=== PATIENT | male | born 1970 | race Caucasian/White ===

== ENCOUNTER 2016-05-02 23:01 | Emergency (ER) | payer OTHER ==
[2016-05-02] MEDS ORDERED: DIPH,PERTUS(ACELL)TETVAC-LF 0.5 ML VIAL IM ONE (23:07)
[2016-05-02 23:09] LABS: Glucose,Whole Blood 83 mg/dL (75-99)
[2016-05-02 23:12] VITALS: TEMP 97.8
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
[2016-05-02 23:18] LABS: Basophils # (A) 0.1 k/uL (0-0.2); Basophils % (A) 1 %; CH 30.2; CHCM 33.6; Eosinophils # (A) 0.1 k/uL (0-0.7); Eosinophils % (A) 1 %; HDW 2.57; HGB 13.4 gm/dL (13.0-17.5); Luc # (Auto) 0.12; Luc % (Auto) 2; Lymphocytes # (A) 2.3 k/uL (1.0-4.8); Lymphocytes % (A) 30 %; MCV 90.5 fL (80.0-100.0); Mean Platelet Volume 7.1; Monocytes # (A) 0.4 k/uL (0-1.0); Monocytes % (A) 6 %; Neutrophils # (A) 4.6 k/uL (1.3-7.7); Neutrophils % (A) 61 %; RBC 4.64 m/uL (4.30-5.90); RDW 13.9 % (11.5-15.5); WBC 7.6 k/uL (3.8-10.6); WBC (Perox) 7.44
[2016-05-02 23:29] LABS: ALT 34 U/L (21-72); AST 34 U/L (17-59); Alkaline Phosphatase 62 U/L (38-126); Amylase <30 U/L (30-110); Anion Gap 13 mmol/L; Blood Urea Nitrogen 8 mg/dL (9-20); Calcium 8.8 mg/dL (8.4-10.2); Carbon Dioxide 22 mmol/L (22-30); Chloride 107 mmol/L (98-107); Glucose 80 mg/dL (74-99); Non-African American GFR(MDRD) >60 (>60 ml/min/1.73 sqM); Potassium 4.3 mmol/L (3.5-5.1); Sodium 142 mmol/L (137-145); Total Bilirubin 0.4 mg/dL (0.2-1.3); Total Protein 6.8 g/dL (6.3-8.2)
[2016-05-02 23:31] LABS: Alcohol 215 mg/dL
[2016-05-02 23:37] LABS: Creatine Kinase 283 U/L (55-170)
[2016-05-02 23:49] LABS: INR 1.1 (<1.1); Partial Thromboplastin Time 23.1 sec (22.0-30.0)
[2016-05-02 23:50] LABS: Troponin I <0.012 ng/mL (0.000-0.034)
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
[2016-05-03] MEDS ORDERED: HYDROmorphone 1 MG/ML 1 ML SYRINGE IVP STA (00:41)
[2016-05-03] MEDS ORDERED: MIDAZOLAM (PF) 1 MG/ML 5 ML VIAL IV STA (00:41)
[2016-05-03 00:59] VITALS: RESP 14
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
[2016-05-03 02:03] VITALS: BP 120/80; PULSE 70
--- NOTE | 2016-05-03 03:31 | XR ---
EXAMINATION TYPE: XR shoulder limited RT DATE OF EXAM: 05/03/2016 1:02 AM CLINICAL HISTORY: Post reduction right shoulder TECHNIQUE: Three views of the right shoulder are obtained. COMPARISON: 05/02/2016 FINDINGS: There is interval reduction of anterior dislocation of right shoulder joint. Mild degenerative change s are suggested in the right glenohumeral and the right acromioclavicular joint. Surrounding soft tis gavin swelling is suggested. Visualized right lung and right ribs appear grossly unremarkable. No defin ite acute fracture is noted in the right shoulder. IMPRESSION: 1. Interval reduction of anterior dislocation of right shoulder joint. 2. No definite acute fracture is noted. A clinical correlation and follow-up is recommended.
== END 2016-05-03 02:02 | disposition home or self-care (01) ==
LOC: EC 23:01
DX: S43.084A Other dislocation of right shoulder joint, initial encounter (principal); S00.81XA Abrasion of other part of head, initial encounter; F10.129 Alcohol abuse with intoxication, unspecified; V29.9XXA Motorcycle rider (driver) (passenger) injured in unspecified traffic accident, initial encounter; Z23 Encounter for immunization; F95.2 Tourette's disorder; F20.9 Schizophrenia, unspecified; F41.9 Anxiety disorder, unspecified; F17.200 Nicotine dependence, unspecified, uncomplicated; Z79.899 Other long term (current) drug therapy
CPT/HCPCS: 36415; 93005; 86900; 86901; 80053; 82150; 82550; 82553; 83690; 84484; 85025; 85610; 85730; 86850; 80320; 71010; 72170; 73020 ×2; 72125; 70486; 70450; 90715; 99285; 23650; 99152; 96374; J2250; J1170; 90471

== ENCOUNTER 2017-03-16 14:57 | Emergency (ER) | payer OTHER ==
[2017-03-16 15:13] VITALS: BP 124/75; PULSE 114; RESP 18; TEMP 99.1
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
== END 2017-03-16 16:01 | disposition home or self-care (01) ==
LOC: EC 14:57
DX: S01.01XA Laceration without foreign body of scalp, initial encounter (principal); F17.200 Nicotine dependence, unspecified, uncomplicated; Z79.899 Other long term (current) drug therapy; W20.8XXA Other cause of strike by thrown, projected or falling object, initial encounter; Y93.89 Activity, other specified; Y92.009 Unspecified place in unspecified non-institutional (private) residence as the place of occurrence of the external cause
CPT/HCPCS: 12001; 99282

== ENCOUNTER 2018-09-29 06:39 | Emergency (ER) | payer OTHER ==
[2018-09-29 06:55] VITALS: BP 134/88; PULSE 95; RESP 20; TEMP 97.8
[2018-09-29] MEDS ORDERED: ACET/COD 300 MG/30 MG STARTER PACK 6 TAB BTL PO STA (07:19)
--- NOTE | 2018-09-29 07:19 | ED ---
Upper Extremity HPI - General Chief Complaint: Extremity Injury, Upper Stated Complaint: shoulder pain Time Seen by Provider: 09/29/18 07:03 Source: patient, RN notes reviewed Mode of arrival: ambulatory Limitations: no limitations - History of Present Illness Initial Comments: 48-year-old male presents emergency Department chief complaint of right shoulder pain. Patient states that he has had prior dislocation. Patient states it feels dislocated. Patient states that he woke up with this. Patient denies any trauma. Denies any paresthesias. Patient states that his happened 2 prior times. Patient offers no other complaints. - Related Data Home Medications Medication Instructions Recorded Confirmed Primidone [Mysoline] 50 mg PO BID 03/07/15 09/18/15 HYDROcodone/APAP 7.5-325MG [[place] 1 tab PO TID PRN 08/06/15 09/18/15 7.5-325] Previous Rx's Medication Instructions Recorded ALPRAZolam [Xanax] 2 mg PO TID PRN #10 tab 08/09/15 Nicotine 21Mg/24Hr Patch [Habitrol] 1 patch TRANSDERM DAILY #30 patch 08/09/15 Sertraline [Zoloft] 200 mg PO DAILY #60 tab 08/09/15 buPROPion XL [Wellbutrin XL] 150 mg PO DAILY #30 tab.er.24h 08/09/15 hydrOXYzine PAMOATE [Vistaril] 50 mg PO Q6HR PRN #120 cap 08/09/15 QUEtiapine FUMARATE [SEROquel] 300 mg PO HS #30 tab 08/19/15 Cyclobenzaprine [Flexeril] 10 mg PO TID #14 tab 05/03/16 Ibuprofen [Motrin] 800 mg PO Q6HR PRN #20 tab 05/03/16 Allergies Allergy/AdvReac Type Severity Reaction Status Date / Time No Known Allergies Allergy Verified 03/16/17 15:13 Review of Systems ROS Statement: Those systems with pertinent positive or pertinent negative responses have been documented in the HPI. ROS Other: All systems not noted in ROS Statement are negative. Past Medical History Past Medical History: GERD/Reflux Additional Past Medical History / Comment(s): back pain, tourettes History of Any Multi-Drug Resistant Organisms: None Reported Past Surgical History: No Surgical Hx Reported Additional Past Surgical History / Comment(s): right meniscus, right eye. Past Anesthesia/Blood Transfusion Reactions: No Reported Reaction Past Psychological History: Anxiety, Schizophrenia Smoking Status: Current every day smoker Past Alcohol Use History: None Reported Past Drug Use History: None Reported General Exam Limitations: no limitations General appearance: alert, in no apparent distress Head exam: Present: atraumatic, normocephalic, normal inspection Neck exam: Present: normal inspection. Absent: tenderness, meningismus, lymphadenopathy Respiratory exam: Present: normal lung sounds bilaterally. Absent: respiratory distress, wheezes, rales, rhonchi, stridor Cardiovascular Exam: Present: regular rate, normal rhythm, normal heart sounds. Absent: systolic murmur, diastolic murmur, rubs, gallop, clicks Extremities exam: Present: other (Right shoulder there is an obvious dislocation, sulcus noted, neurovascular intact right extremity and limited ran ge of motion) Course Vital Signs 09/29/18 06:52 Temperature 97.8 F Pulse Rate 95 Respiratory 20 Rate Blood Pressure 134/88 O2 Sat by Pulse 93 L Oximetry Procedures - Orthopedic Joint Reduction Joint #1 Consent Obtained: verbal consent Side: right Joint Reduction Location: shoulder Shoulder Technique Used (if applicable): traction/counter-traction Technique Used: traction/counter-traction Post-Reduction Neuro Exam: intact Post-Reduction Vascular Exam: intact Post Reduction X-Ray Obtained: Yes Post Reduction X-Ray Results: reduced Splint Applied: Yes Patient Tolerated Procedure: well, no complications Additional Comments: Patient placed in sling Medical Decision Making - Medical Decision Making 48-year-old male presented for right shoulder dislocation. This was reduced in the room with no complications, neurovascular intact. Patient is placed in a sling advised to follow-up with orthopedics. Disposition Clinical Impression: Dislocation of right shoulder joint Disposition: HOME SELF-CARE Condition: Stable Instructions (If sedation given, give patient instructions): Shoulder Dislocation (ED) Additional Instructions: Please return to the Emergency Department if symptoms worsen or any other concerns. Is patient prescribed a controlled substance at d/c from ED?: No Referrals: None,Stated [Primary Care Provider] - 1-2 days Brian Sheriff MD [STAFF PHYSICIAN] - 1-2 days Time of Disposition: :
--- NOTE | 2018-09-29 07:33 | XR ---
EXAMINATION TYPE: XR shoulder complete RT DATE OF EXAM: 09/29/2018 COMPARISON: NONE HISTORY: Pain TECHNIQUE: 1 views submitted FINDINGS: Anterior dislocation of the right shoulder. Definite acute fracture. Arthropathy of the AC joint. IMPRESSION: Anterior dislocation of the right shoulder
--- NOTE | 2018-09-29 07:34 | XR ---
EXAMINATION TYPE: XR shoulder limited RT DATE OF EXAM: 09/29/2018 COMPARISON: NONE HISTORY: Pain TECHNIQUE: One view submitted FINDINGS: Post reduction view demonstrates near-anatomic alignment. Arthropathy AC joint. No acute fr acture. IMPRESSION: Post reduction
== END 2018-09-29 07:42 | disposition home or self-care (01) ==
LOC: EC 06:39
DX: S43.014A Anterior dislocation of right humerus, initial encounter (principal); F17.200 Nicotine dependence, unspecified, uncomplicated; Z79.899 Other long term (current) drug therapy; Z98.890 Other specified postprocedural states
CPT/HCPCS: 23650; 99283

== ENCOUNTER 2019-03-20 12:10 | Emergency (ER) | payer OTHER ==
[2019-03-20 13:05] VITALS: TEMP 98.3
[2019-03-20] MEDS ORDERED: IPRATROPIUM-ALBUTEROL 3 ML NEB INHALATION STA (13:38)
[2019-03-20] MEDS ORDERED: methylPREDNISolone SOD SUCCI 125 MG/2 ML VIAL IM ONE (13:38)
--- NOTE | 2019-03-20 14:04 | XR ---
EXAMINATION TYPE: XR chest 2V DATE OF EXAM: 03/20/2019 COMPARISON: May 02, 2016 HISTORY: Chest pain TECHNIQUE: Frontal and lateral views of the chest are obtained. FINDINGS: There is no focal air space opacity. No evidence for pneumothorax. No pleural effusion. The cardiac silhouette size is within normal limits. The osseous structures are grossly intact. IMPRESSION: 1. No acute cardiopulmonary process.
--- NOTE | 2019-03-20 14:12 | ED ---
URI HPI - General Chief Complaint: Upper Respiratory Infection Stated Complaint: congestion Time Seen by Provider: 03/20/19 13:23 Source: patient, RN notes reviewed, old records reviewed Mode of arrival: ambulatory Limitations: no limitations - History of Present Illness Initial Comments: Patient is a 48 year old male with CC of upper respiratory congestion. Patient reports he was working outside and coughing often. Patient has no fever. Patient has had no sick contacts. Patient denies abdominal pain. - Related Data Home Medications Medication Instructions Recorded Confirmed Primidone [Mysoline] 50 mg PO BID 03/07/15 09/18/15 HYDROcodone/APAP 7.5-325MG [[place] 1 tab PO TID PRN 08/06/15 09/18/15 7.5-325] Previous Rx's Medication Instructions Recorded ALPRAZolam [Xanax] 2 mg PO TID PRN #10 tab 08/09/15 Nicotine 21Mg/24Hr Patch [Habitrol] 1 patch TRANSDERM DAILY #30 patch 08/09/15 Sertraline [Zoloft] 200 mg PO DAILY #60 tab 08/09/15 buPROPion XL [Wellbutrin XL] 150 mg PO DAILY #30 tab.er.24h 08/09/15 hydrOXYzine PAMOATE [Vistaril] 50 mg PO Q6HR PRN #120 cap 08/09/15 QUEtiapine FUMARATE [SEROquel] 300 mg PO HS #30 tab 08/19/15 Cyclobenzaprine [Flexeril] 10 mg PO TID #14 tab 05/03/16 Ibuprofen [Motrin] 800 mg PO Q6HR PRN #20 tab 05/03/16 Albuterol Inhaler [Ventolin Hfa 1 - 2 puff INHALATION RT-Q6H PRN 03/20/19 Inhaler] #1 inhaler Azithromycin 250 mg PO DAILY #6 tablet 03/20/19 predniSONE 50 mg PO DAILY #5 tablet 03/20/19 Allergies Allergy/AdvReac Type Severity Reaction Status Date / Time haloperidol Allergy Unknown Verified 03/20/19 13:05 Review of Systems ROS Statement: Those systems with pertinent positive or pertinent negative responses have been documented in the HPI. ROS Other: All systems not noted in ROS Statement are negative. Past Medical History Past Medical History: GERD/Reflux Additional Past Medical History / Comment(s): back pain, tourettes History of Any Multi-Drug Resistant Organisms: None Reported Past Surgical History: No Surgical Hx Reported Additional Past Surgical History / Comment(s): right meniscus, right eye. Past Anesthesia/Blood Transfusion Reactions: No Reported Reaction Past Psychological History: Anxiety, Schizophrenia Smoking Status: Current every day smoker Past Alcohol Use History: Occasional Past Drug Use History: None Reported General Exam - General Exam Comments Initial Comments: 48 year old male. No distress. Limitations: no limitations General appearance: alert, in no apparent distress Head exam: Present: atraumatic, normocephalic, normal inspection Eye exam: Present: normal appearance, PERRL, EOMI, other (rhinorrhea). Absent: scleral icterus, conjunctival injection, periorbital swelling ENT exam: Present: normal exam, mucous membranes moist Neck exam: Present: normal inspection. Absent: tenderness, meningismus, lymphadenopathy Respiratory exam: Present: normal lung sounds bilaterally. Absent: respiratory distress, wheezes, rales, rhonchi, stridor Cardiovascular Exam: Present: regular rate, normal rhythm, normal heart sounds. Absent: systolic murmur, diastolic murmur, rubs, gallop, clicks GI/Abdominal exam: Present: soft, normal bowel sounds. Absent: distended, tenderness, guarding, rebound, rigid Neurological exam: Present: alert, oriented X3, CN II-XII intact Psychiatric exam: Present: normal affect, normal mood Skin exam: Present: warm, dry, intact, normal color. Absent: rash Course Vital Signs 03/20/19 03/20/19 03/20/19 13:01 14:37 14:47 Temperature 98.3 F Pulse Rate 105 H 100 104 H Respiratory 18 Rate Blood Pressure 148/89 O2 Sat by Pulse 95 Oximetry 03/20/19 14:51 Temperature Pulse Rate 103 H Respiratory 20 Rate Blood Pressure 139/86 O2 Sat by Pulse 97 Oximetry Medical Decision Making - Medical Decision Making 48 year old male, presents today for concern for cough and congestion. Patient has clear lungs with dry non productive cough. Patient has normal CXR. Patient advised to follow up with PCP, and discussed treatment for URI with azithromyc in, steroids and OTC treatment. - Radiology Data Radiology results: report reviewed CXR is negative for acute process. Disposition Clinical Impression: Bronchitis Disposition: HOME SELF-CARE Condition: Good Instructions (If sedation given, give patient instructions): Acute Bronchitis (ED) Additional Instructions: Please use medication as discussed. Please follow up with family doctor if symptoms have not improved over the next two days. Please return to the emergency room if your symptoms increase or worsen or for any other concerns. Prescriptions: Azithromycin 250 mg PO DAILY #6 tablet predniSONE 50 mg PO DAILY #5 tablet Albuterol Inhaler [Ventolin Hfa Inhaler] 1 - 2 puff INHALATION RT-Q6H PRN #1 inhaler PRN Reason: Shortness Of Breath Is patient prescribed a controlled substance at d/c from ED?: No Referrals: None,Stated [Primary Care Provider] - 1-2 days Susu Sullivan MD [REFERRING] - 1-2 days Time of Disposition: 14:10
[2019-03-20 14:52] VITALS: BP 139/86; PULSE 103; RESP 20
== END 2019-03-20 14:52 | disposition home or self-care (01) ==
LOC: EC 12:10
DX: J40 Bronchitis, not specified as acute or chronic (principal); F17.200 Nicotine dependence, unspecified, uncomplicated; Z79.899 Other long term (current) drug therapy; Z88.8 Allergy status to other drugs, medicaments and biological substances
CPT/HCPCS: 94640; 71046; 99284; 96372; J2930

== ENCOUNTER 2019-04-02 06:53 | Emergency (ER) | payer OTHER ==
[2019-04-02 07:00] VITALS: TEMP 98
--- NOTE | 2019-04-02 07:16 | ED ---
Extremity Problem HPI <Vijay Olguin - Last Filed: 04/02/19 07:58> - General Source: patient, RN notes reviewed, old records reviewed Mode of arrival: ambulatory <Janki Cunha - Last Filed: 04/02/19 08:16> - General Chief complaint: Extremity Problem,Nontraumatic Stated complaint: dislocated rt shoulder Time Seen by Provider: 04/02/19 07:06 - History of Present Illness Initial comments: Patient is a 48-year-old male present emergency department today with right shoulder dislocation. Patient reports that he woke up with the shoulder dislocated. Patient states he has done this before. Patient reports that he is able to reduce the shoulder without sedation back in September. Patient states that he is right-handed. He denies any fall or trauma. Patient states that he has full range motion of his fingers and sensation distally. (Janki Cunha) - Related Data Home Medications Medication Instructions Recorded Confirmed Primidone [Mysoline] 50 mg PO BID 03/07/15 09/18/15 HYDROcodone/APAP 7.5-325MG [[place] 1 tab PO TID PRN 08/06/15 09/18/15 7.5-325] Previous Rx's Medication Instructions Recorded ALPRAZolam [Xanax] 2 mg PO TID PRN #10 tab 08/09/15 Nicotine 21Mg/24Hr Patch [Habitrol] 1 patch TRANSDERM DAILY #30 patch 08/09/15 Sertraline [Zoloft] 200 mg PO DAILY #60 tab 08/09/15 buPROPion XL [Wellbutrin XL] 150 mg PO DAILY #30 tab.er.24h 08/09/15 hydrOXYzine PAMOATE [Vistaril] 50 mg PO Q6HR PRN #120 cap 08/09/15 QUEtiapine FUMARATE [SEROquel] 300 mg PO HS #30 tab 08/19/15 Cyclobenzaprine [Flexeril] 10 mg PO TID #14 tab 05/03/16 Ibuprofen [Motrin] 800 mg PO Q6HR PRN #20 tab 05/03/16 Albuterol Inhaler [Ventolin Hfa 1 - 2 puff INHALATION RT-Q6H PRN 03/20/19 Inhaler] #1 inhaler Azithromycin 250 mg PO DAILY #6 tablet 03/20/19 predniSONE 50 mg PO DAILY #5 tablet 03/20/19 Ibuprofen [Motrin] 600 mg PO Q8HR PRN #20 tab 04/02/19 Allergies Allergy/AdvReac Type Severity Reaction Status Date / Time haloperidol Allergy Unknown Verified 03/20/19 13:05 Review of Systems ROS Other: All systems not noted in ROS Statement are negative. <OlguinVijay - Last Filed: 04/02/19 07:58> ROS Other: All systems not noted in ROS Statement are negative. <Fatou Cunhaily - Last Filed: 04/02/19 08:16> ROS Statement: Those systems with pertinent positive or pertinent negative responses have been documented in the HPI. Past Medical History Past Medical History: GERD/Reflux Additional Past Medical History / Comment(s): back pain, tourettes History of Any Multi-Drug Resistant Organisms: None Reported Past Surgical History: No Surgical Hx Reported Additional Past Surgical History / Comment(s): right meniscus, right eye. Past Anesthesia/Blood Transfusion Reactions: No Reported Reaction Past Psychological History: Anxiety, Schizophrenia Smoking Status: Current every day smoker Past Alcohol Use History: Occasional Past Drug Use History: None Reported <GuerlineJanki - Last Filed: 04/02/19 08:16> General Exam General appearance: alert, in no apparent distress Head exam: Present: atraumatic, normocephalic, normal inspection Eye exam: Present: normal appearance, PERRL, EOMI. Absent: scleral icterus, conjunctival injection, periorbital swelling ENT exam: Present: normal exam, mucous membranes moist Neck exam: Present: normal inspection. Absent: tenderness, meningismus, lymphadenopathy Respiratory exam: Present: normal lung sounds bilaterally. Absent: respiratory distress, wheezes, rales, rhonchi, stridor Cardiovascular Exam: Present: regular rate, normal rhythm, normal heart sounds. Absent: systolic murmur, diastolic murmur, rubs, gallop, clicks GI/Abdominal exam: Present: soft, normal bowel sounds. Absent: distended, tenderness, guarding, rebound, rigid Extremities exam: Present: normal inspection, full ROM, normal capillary refill. Absent: tenderness, pedal edema, joint swelling, calf tenderness Right Shoulder Exam: Present: tenderness, swelling, other (obvious dislocation. ). Absent: normal inspection, full ROM, abrasion, laceration, ecchymosis Upper Arm exam: Present: normal inspection, full ROM Elbow exam: Present: normal inspection, full ROM Forearm Wrist exam: Present: normal inspection, full ROM Back exam: Present: normal inspection Neurological exam: Present: alert, oriented X3, CN II-XII intact Psychiatric exam: Present: normal affect, normal mood Skin exam: Present: warm, dry, intact, normal color. Absent: rash <Janki Cunha - Last Filed: 04/02/19 08:16> - General Exam Comments Initial Comments: Alert and oriented 48-year-old male. No distress. (Janki Cunha) Course Vital Signs 04/02/19 04/02/19 04/02/19 06:57 07:00 07:41 Temperature 98 F Pulse Rate 85 75 74 Respiratory 18 18 18 Rate Blood Pressure 133/103 136/108 O2 Sat by Pulse 98 99 99 Oximetry 04/02/19 04/02/19 04/02/19 07:50 07:54 07:58 Temperature Pulse Rate 78 96 81 Respiratory 18 18 18 Rate Blood Pressure 91/79 106/47 107/60 O2 Sat by Pulse 98 97 99 Oximetry Procedures - Orthopedic Joint Reduction Joint #1 Consent Obtained: verbal consent Side: right Joint Reduction Location: shoulder Analgesia: procedural sedation Shoulder Technique Used (if applicable): traction/counter-traction Technique Used: traction/counter-traction Post-Reduction Neuro Exam: intact Post-Reduction Vascular Exam: intact Post Reduction X-Ray Obtained: Yes Post Reduction X-Ray Results: reduced Splint Applied: Yes Patient Tolerated Procedure: well - Procedural Sedation Procedural Sedation Start Time: 07:50 Procedural Sedation Stop Time: 08:10 Indications: fracture/dislocation reduction Preparation: environmental monitoring technician applied, pulse oximeter, supplemental O2 applied IV Propofol Dose (mgs): 135 Complications: none Patient Tolerated Procedure: well <Vijay Olguin - Last Filed: 04/02/19 07:58> Medical Decision Making <Vijay Olguin - Last Filed: 04/02/19 07:58> - Radiology Data Radiology results: report reviewed <Janki Cunha - Last Filed: 04/02/19 08:16> - Medical Decision Making IEverardo, personally saw and examined the patient. I have reviewed and agree with the PA findings, including all diagnostic interpretations and treatment plans as written unless otherwise stated. I was present for the rodriguez portions of any procedures performed and the inclusive time noted for any critical care statement. (Vijay Olguin) 48-year-old male presents with her mother today with his significant other, complaining of right shoulder pain. He is otherwise dislocation. He reports he woke up with it. He is resting tach. Patient had conscious sedation with propofol, and shoulder was reduced by myself and Dr. Olguin. Patient was reevaluated after her shoulder relocation has full range of motion and normal sensation distally. I discussed putting the Patient in shoulder immobilizer following up with orthopedic. Patient is agreeable treatment plan will comply. Return parameters were discussed. (Janki Cunha) - Radiology Data Anterior subcoracoid glenohumeral joint dislocation. 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 (Janki Cunha) Disposition <Vijay Olguin - Last Filed: 04/02/19 07:58> Is patient prescribed a controlled substance at d/c from ED?: No Time of Disposition: 08:15 <Janki Cunha - Last Filed: 04/02/19 08:16> Clinical Impression: Dislocation of shoulder, right, closed Disposition: HOME SELF-CARE Condition: Good Instructions (If sedation given, give patient instructions): Moderate Sedation (ED), Shoulder Dislocation (ED) Additional Instructions: Please use medication as discussed. Patient should wear the shoulder immob ilizer. Follow up with orthopedic. Please follow up with family doctor if symptoms have not improved over the next two days. Please return to the emergency room if your symptoms increase or worsen or for any other concerns. Prescriptions: Ibuprofen [Motrin] 600 mg PO Q8HR PRN #20 tab PRN Reason: Pain Referrals: Ranulfo Puente MD [Primary Care Provider] - 1-2 days Rivas Nova MD [STAFF PHYSICIAN] - 1-2 days
[2019-04-02] MEDS ORDERED: PROPOFOL 10 MG/ML 20 ML VIAL IV ONE (07:28)
[2019-04-02] MEDS ORDERED: HYDROmorphone 1 MG/ML 1 ML SYRINGE IVP STA ×2 (07:28→08:17)
--- NOTE | 2019-04-02 07:29 | XR ---
EXAMINATION TYPE: XR shoulder limited RT DATE OF EXAM: 04/02/2019 COMPARISON: NONE HISTORY: 48-year-old male right shoulder dislocation, pain TECHNIQUE: 2 views FINDINGS: [id number] degenerative change at the AC joint with marginal spurring. There is an anterior sub coracoid glenohumeral joint dislocation demonstrated. No acute fracture seen. IMPRESSION: Anterior subcoracoid glenohumeral joint dislocation. [id number] AC joint OA.
[2019-04-02 08:15] VITALS: RESP 20
[2019-04-02] MEDS ORDERED: KETOROLAC 30 MG/ML 1 ML VIAL IVP STA (08:17)
[2019-04-02] MEDS ORDERED: ACET/COD 300 MG/30 MG STARTER PACK 6 TAB BTL PO STA (08:18)
--- NOTE | 2019-04-02 08:24 | XR ---
EXAMINATION TYPE: XR shoulder limited RT DATE OF EXAM: 04/02/2019 COMPARISON: Earlier today HISTORY: 48-year-old male dislocation follow-up TECHNIQUE: Single portable AP view FINDINGS: Interval satisfactory reduction of the glenohumeral joint. Possible shallow Hill-Sachs defo rmity. Otherwise, no acute fracture. Mild to moderate degenerative change right AC joint. IMPRESSION: 1. Interval satisfactory reduction of the glenohumeral joint. 2. Possible shallow Hill-Sachs deformity.
[2019-04-02 08:59] VITALS: PULSE 80
[2019-04-02 09:06] VITALS: BP 105/73
== END 2019-04-02 09:12 | disposition home or self-care (01) ==
LOC: EC 06:53
DX: S43.084A Other dislocation of right shoulder joint, initial encounter (principal); M19.011 Primary osteoarthritis, right shoulder; F41.9 Anxiety disorder, unspecified; F17.200 Nicotine dependence, unspecified, uncomplicated; Z88.8 Allergy status to other drugs, medicaments and biological substances; Z79.899 Other long term (current) drug therapy; X58.XXXA Exposure to other specified factors, initial encounter; Z53.8 Procedure and treatment not carried out for other reasons
CPT/HCPCS: 99284; 23650; 99152; 73020; J1885; J1170; J2704

== ENCOUNTER 2020-02-06 00:04 | Emergency (ER) | payer OTHER ==
[2020-02-06 00:32] VITALS: RESP 18; TEMP 97
[2020-02-06] MEDS ORDERED: SODIUM CHLORIDE 0.9% 1,000 ML IV STA (01:02)
[2020-02-06] MEDS ORDERED: PROPOFOL 10 MG/ML 20 ML VIAL IV STA (01:02)
--- NOTE | 2020-02-06 01:22 | XR ---
EXAM: XR Right Shoulder Complete, 2 or More Views CLINICAL HISTORY: ITS.REASON XR Reason: dislocation TECHNIQUE: Two or more views of the right shoulder. COMPARISON: X-ray dated 04/02/2019 FINDINGS: Bones/joints: Anterior dislocation of the right shoulder. No fracture. Soft tissues: Unremarkable. IMPRESSION: Anterior dislocation of the right shoulder. No fracture.
[2020-02-06] MEDS: PROPRANOLOL 1 MG/ML 1 ML VIAL IV STA ×2 (01:25→02:24)
--- NOTE | 2020-02-06 01:31 | ED ---
Upper Extremity HPI - General Source: patient, family Mode of arrival: ambulatory Limitations: no limitations <Cherry Dobbs P - Last Filed: 02/06/20 02:16> <Juaquin Dunaway P - Last Filed: 02/06/20 02:18> - General Chief Complaint: Extremity Injury, Upper Stated Complaint: right shoulder pain Time Seen by Provider: 02/06/20 00:52 - History of Present Illness Initial Comments: Patient is a 41-year-old male presenting to the emergency department for a chief complaint of right shoulder pain. Patient states he rolled over in bed and felt his shoulder dislocate. This has happened several times before. Patient denies any other injuries.Patient has no other complaints at this time including shortness of breath, chest pain, abdominal pain, nausea or vomiting, headache, or visual changes. (Juaquin Dunaway) - Related Data Home Medications Medication Instructions Recorded Confirmed Primidone [Mysoline] 50 mg PO BID 03/07/15 09/18/15 HYDROcodone/APAP 7.5-325MG [[place] 1 tab PO TID PRN 08/06/15 09/18/15 7.5-325] Previous Rx's Medication Instructions Recorded ALPRAZolam [Xanax] 2 mg PO TID PRN #10 tab 08/09/15 Nicotine 21Mg/24Hr Patch [Habitrol] 1 patch TRANSDERM DAILY #30 patch 08/09/15 Sertraline [Zoloft] 200 mg PO DAILY #60 tab 08/09/15 buPROPion XL [Wellbutrin XL] 150 mg PO DAILY #30 tab.er.24h 08/09/15 hydrOXYzine pamoate [Vistaril] 50 mg PO Q6HR PRN #120 cap 08/09/15 QUEtiapine FUMARATE [SEROquel] 300 mg PO HS #30 tab 08/19/15 Cyclobenzaprine [Flexeril] 10 mg PO TID #14 tab 05/03/16 Ibuprofen [Motrin] 800 mg PO Q6HR PRN #20 tab 05/03/16 Albuterol Inhaler (Mhu) [Ventolin 1 - 2 puff INHALATION RT-Q6H PRN 03/20/19 Hfa Inhaler (Mhu)] #1 inhaler Azithromycin 250 mg PO DAILY #6 tablet 03/20/19 predniSONE 50 mg PO DAILY #5 tablet 03/20/19 Ibuprofen [Motrin] 600 mg PO Q8HR PRN #20 tab 04/02/19 Allergies Allergy/AdvReac Type Severity Reaction Status Date / Time haloperidol Allergy Unknown Verified 02/06/20 00:32 Review of Systems ROS Other: All systems not noted in ROS Statement are negative. <Cherry Dobbs P - Last Filed: 02/06/20 02:16> ROS Other: All systems not noted in ROS Statement are negative. <Juaquin Dunaway P - Last Filed: 02/06/20 02:18> ROS Statement: Those systems with pertinent positive or pertinent negative responses have been documented in the HPI. Past Medical History Past Medical History: GERD/Reflux Additional Past Medical History / Comment(s): back pain, tourettes History of Any Multi-Drug Resistant Organisms: None Reported Past Surgical History: No Surgical Hx Reported Additional Past Surgical History / Comment(s): right meniscus, right eye. Past Anesthesia/Blood Transfusion Reactions: No Reported Reaction Past Psychological History: Anxiety, Schizophrenia Smoking Status: Current every day smoker Past Alcohol Use History: Daily, Occasional Past Drug Use History: None Reported <Cherry Dobbs P - Last Filed: 02/06/20 02:16> General Exam Limitations: no limitations <Cherry Dobbs P - Last Filed: 02/06/20 02:16> General appearance: alert, in no apparent distress Head exam: Present: atraumatic, normocephalic, normal inspection Eye exam: Present: normal appearance, PERRL, EOMI. Absent: scleral icterus, conjunctival injection, periorbital swelling ENT exam: Present: normal exam, mucous membranes moist Neck exam: Present: normal inspection, full ROM. Absent: tenderness, meningismus, lymphadenopathy Respiratory exam: Present: normal lung sounds bilaterally. Absent: respiratory distress, wheezes, rales, rhonchi, stridor Cardiovascular Exam: Present: regular rate, normal rhythm, normal heart sounds. Absent: systolic murmur, diastolic murmur, rubs, gallop, clicks GI/Abdominal exam: Present: soft, normal bowel sounds. Absent: distended, tenderness, guarding, rebound, rigid Extremities exam: Present: normal capillary refill (Capillary refill less than 2 seconds, radial pulse 2+ in the right upper extremity.), other (Sensation intact right upper extremity, shoulder does appear dislocated, deformity noted.). Absent: full ROM (Patient unable to move right shoulder secondary to pain.), tenderness, pedal edema, joint swelling, calf tenderness <Juaquin Dunaway P - Last Filed: 02/06/20 02:18> Course Vital Signs 02/06/20 02/06/20 02/06/20 00:28 01:16 01:28 Temperature 97 F L Pulse Rate 72 79 84 Respiratory 18 18 18 Rate Blood Pressure 128/88 131/107 119/95 O2 Sat by Pulse 97 100 98 Oximetry 02/06/20 02/06/20 01:35 02:14 Temperature Pulse Rate 78 75 Respiratory 18 18 Rate Blood Pressure 109/81 98/59 O2 Sat by Pulse 96 96 Oximetry Procedures - [place] Protocol (Time Out) Performing Provider: Cherry Dobbs Nurse: Cherry Lerner Respiratory Therapist: Suni Downing Timeout Date: 02/06/20 Timeout Time: 01:20 Patient Identification (2 identifiers required): Chart, Verbal, Arm Band, Name Patient/Legal Airplane Cleaner has Confirmed: Identity Site Marked: No Site Verified With Patient/Guardian: Yes Final Confirmation: Procedure, Site, Laterality, Patient Position, Radiographs - Procedural Sedation Procedural Sedation Start Time: 01:25 Procedural Sedation Stop Time: 01:30 Indications: fracture/dislocation reduction ASA Class: I Mallampati Airway Score: 1 Preparation: direct selling counselor applied, pulse oximeter, capnometry used, supplemental O2 applied, reversal agents at bedside, suction/airway equipment at bedside, IV secured IV Propofol Dose (mgs): 100 <Cherry Dobbs - Last Filed: 02/06/20 02:16> - Orthopedic Joint Reduction Joint #1 Consent Obtained: verbal consent Side: right Analgesia: procedural sedation Shoulder Technique Used (if applicable): traction/counter-traction Technique Used: traction/counter-traction Post-Reduction Neuro Exam: intact Post-Reduction Vascular Exam: intact Post Reduction X-Ray Obtained: Yes Splint Applied: Yes (Sling) Patient Tolerated Procedure: well, no complications <Juaquin Dunaway P - Last Filed: 02/06/20 02:18> Medical Decision Making <Juaquin Dunaway P - Last Filed: 02/06/20 02:18> - Medical Decision Making X-ray was obtained initially. X-ray shows anterior dislocation of the right shoulder without fracture. Patient was sedated by Dr. Dobbs and this was reduced at bedside. Post reduction x-rays are negative. Patient was given a sling. He was encouraged to follow up with orthopedics. He will be discharged home. (Juaquin Dunaway) Disposition Is patient prescribed a controlled substance at d/c from ED?: No <Cherry Dobbs P - Last Filed: 02/06/20 02:16> Is patient prescribed a controlled substance at d/c from ED?: No Time of Disposition: 01:50 <Juaquin Dunaway P - Last Filed: 02/06/20 02:18> Clinical Impression: Shoulder dislocation Disposition: HOME SELF-CARE Condition: Good Instructions (If sedation given, give patient instructions): Shoulder Dislocation (ED) Additional Instructions: Please follow up with orthopedics. Wear sling until that time while awake. Return to the emergency room for any worsening symptoms. Referrals: Ranulfo Puente MD [Primary Care Provider] - 1-2 days Diogenes Drake DO [Doctor of Osteopathic Medicine] - 1-2 days
[2020-02-06] MEDS ORDERED: PROPOFOL 10 MG/ML 20 ML VIAL IV ONE (01:45)
--- NOTE | 2020-02-06 01:55 | XR ---
EXAM: XR Right Shoulder Complete, 2 or More Views CLINICAL HISTORY: ITS.REASON XR Reason: pain TECHNIQUE: Two or more views of the right shoulder. COMPARISON: X-ray dated 04/02/2019 FINDINGS: Bones/joints: Unremarkable. No acute fracture. No dislocation. Soft tissues: Unremarkable. IMPRESSION: Normal right shoulder x-rays.
[2020-02-06 02:15] VITALS: BP 98/59; PULSE 75
== END 2020-02-06 02:31 | disposition home or self-care (01) ==
LOC: EC 00:04
DX: S43.004A Unspecified dislocation of right shoulder joint, initial encounter (principal); F17.200 Nicotine dependence, unspecified, uncomplicated; Z88.8 Allergy status to other drugs, medicaments and biological substances; X50.1XXA Overexertion from prolonged static or awkward postures, initial encounter; Y92.89 Other specified places as the place of occurrence of the external cause
CPT/HCPCS: 73020; 99283; 96374; 96361; J2704

== ENCOUNTER 2020-06-21 05:45 | Emergency (ER) | payer OTHER ==
[2020-06-21] MEDS ORDERED: HYDROmorphone 0.5 MG/0.5 ML SYRINGE IVP STA (06:20)
[2020-06-21 06:26] VITALS: TEMP 98
--- NOTE | 2020-06-21 06:35 | ED ---
Extremity Problem HPI - General Stated complaint: Rt shoulder pain Time Seen by Provider: 06/21/20 06:20 Source: patient Mode of arrival: ambulatory Limitations: no limitations - History of Present Illness Initial comments: 50yo male with hx of recurrent right shoulder dislocations presenting for cc of right shoulder dislocation. Pt states he was in bed sleeping when he rolled over this morning he dislocated his shoulder. He states he tried using weights like he has been told before to relocate the shoulder but states that did not work so he put a sling on and came to the ER for evaluation. Upon arrival patient appears well, in no distress. Denies any other injuries, weakness of arm, or sensation deficits. - Related Data Home Medications Medication Instructions Recorded Confirmed Primidone [Mysoline] 50 mg PO BID 03/07/15 09/18/15 HYDROcodone/APAP 7.5-325MG [[place] 1 tab PO TID PRN 08/06/15 09/18/15 7.5-325] Previous Rx's Medication Instructions Recorded ALPRAZolam [Xanax] 2 mg PO TID PRN #10 tab 08/09/15 Nicotine 21Mg/24Hr Patch [Habitrol] 1 patch TRANSDERM DAILY #30 patch 08/09/15 Sertraline [Zoloft] 200 mg PO DAILY #60 tab 08/09/15 buPROPion XL [Wellbutrin XL] 150 mg PO DAILY #30 tab.er.24h 08/09/15 hydrOXYzine pamoate [Vistaril] 50 mg PO Q6HR PRN #120 cap 08/09/15 QUEtiapine FUMARATE [SEROquel] 300 mg PO HS #30 tab 08/19/15 Cyclobenzaprine [Flexeril] 10 mg PO TID #14 tab 05/03/16 Ibuprofen [Motrin] 800 mg PO Q6HR PRN #20 tab 05/03/16 Albuterol Inhaler (Mhu) [Ventolin 1 - 2 puff INHALATION RT-Q6H PRN 03/20/19 Hfa Inhaler (Mhu)] #1 inhaler Azithromycin 250 mg PO DAILY #6 tablet 03/20/19 predniSONE 50 mg PO DAILY #5 tablet 03/20/19 Ibuprofen [Motrin] 600 mg PO Q8HR PRN #20 tab 04/02/19 Allergies Allergy/AdvReac Type Severity Reaction Status Date / Time haloperidol Allergy Unknown Verified 02/06/20 00:32 Review of Systems ROS Statement: Those systems with pertinent positive or pertinent negative responses have been documented in the HPI. ROS Other: All systems not noted in ROS Statement are negative. Past Medical History Past Medical History: GERD/Reflux Additional Past Medical History / Comment(s): back pain, tourettes History of Any Multi-Drug Resistant Organisms: None Reported Past Surgical History: No Surgical Hx Reported Additional Past Surgical History / Comment(s): right meniscus, right eye. Past Anesthesia/Blood Transfusion Reactions: No Reported Reaction Past Psychological History: Anxiety, Schizophrenia Smoking Status: Current every day smoker Past Alcohol Use History: Daily, Heavy Past Drug Use History: None Reported General Exam - General Exam Comments Initial Comments: General: The patient is awake and alert, in no distress, and does not appear acutely ill. Eye: +3 mm pupils are equal, round and reactive to light, extra-ocular movements are intact. No nystagmus. There is normal conjunctiva bilaterally. No signs of icterus. Ears, nose, mouth and throat: There are moist mucous membranes and no oral lesions. Neck: The neck is supple, there is no tenderness or JVD. Cardiovascular: There is a regular rate and rhythm. No murmur, rub or gallop is appreciated. Respiratory: Lungs are clear to auscultation, respirations are non-labored, breath sounds are equal. No wheezes, stridor, rales, or rhonchi. Musculoskeletal: Gross deformity of the right shoulder with decreased ROM. Tender anteriorly. Strength 5/5 t the elbow and wrist. Sensation intact proximal and distal to injury site. radial pulses equal bilaterally 2+. Neurological: A&O x 3. CN II-XII intact grossly, There are no obvious motor or sensory deficits. Coordination appears grossly intact. Speech is normal. Skin: Skin is warm and dry and no rashes or lesions are noted. Psychiatric: Cooperative, appropriate mood & affect, normal judgment. Limitations: no limitations Course Vital Signs 06/21/20 06/21/20 06/21/20 05:57 07:42 07:45 Temperature 98 F Pulse Rate 75 84 86 Respiratory 18 18 16 Rate Blood Pressure 132/90 133/98 118/79 O2 Sat by Pulse 98 100 100 Oximetry 06/21/20 06/21/20 07:48 08:00 Temperature Pulse Rate 90 86 Respiratory 18 18 Rate Blood Pressure 123/96 99/76 O2 Sat by Pulse 99 99 Oximetry Procedures - Orthopedic Joint Reduction Joint #1 Consent Obtained: verbal consent Side: right Joint Reduction Location: shoulder Analgesia: procedural sedation Amount of Anesthetic Used (mLs): 120 (ml Propofol) Shoulder Technique Used (if applicable): traction/counter-traction, other Technique Used: traction/counter-traction Post-Reduction Neuro Exam: intact Post-Reduction Vascular Exam: intact Post Reduction X-Ray Obtained: Yes Post Reduction X-Ray Results: reduced Splint Applied: Yes (sling) Medical Decision Making - Medical Decision Making cc recurrent right shoulder dislocation that occurred in bed. shoulder was re- located after sedation with propofol. pt tolerated procedure well. pt monitored and discharged wtih pcp f/uZaire finley agreeable to care plan and discharge. Disposition Clinical Impression: Recurrent dislocation, right shoulder Disposition: HOME SELF-CARE Condition: Good Instructions (If sedation given, give patient instructions): Shoulder Dislocation (ED), Moderate Sedation (ED) Additional Instructions: Please use medication as discussed. Please follow-up with family doctor in the next 2 days. Please return to emergency room if the symptoms increase or worsen or for any other concerns. Is patient prescribed a controlled substance at d/c from ED?: No Referrals: None,Stated [REFERRING] - 1-2 days Time of Disposition: 08:35
--- NOTE | 2020-06-21 06:45 | XR ---
EXAMINATION TYPE: XR shoulder limited RT DATE OF EXAM: 06/21/2020 CLINICAL HISTORY: Pain, abnormal exam. History of dislocation. TECHNIQUE: Single view of the right shoulder is obtained. COMPARISON: Prior right shoulder x-ray February 06, 2020. FINDINGS: There is inferior medial displacement humeral head relative to the glenoid. No acute fract ure is seen. The visualized ribs are intact and unremarkable. IMPRESSION: There is return anterior glenohumeral joint dislocation.
[2020-06-21] MEDS ORDERED: PROPOFOL 10 MG/ML 20 ML VIAL IV ONE (07:06)
[2020-06-21 07:59] VITALS: RESP 18
[2020-06-21 08:28] VITALS: BP 99/76; PULSE 86
--- NOTE | 2020-06-21 08:29 | XR ---
EXAMINATION TYPE: XR shoulder limited RT DATE OF EXAM: 06/21/2020 COMPARISON: NONE HISTORY: Post reduction TECHNIQUE: One view submitted FINDINGS: Post reduction demonstrates near anatomic alignment. Hypertrophic change of the AC joint. IMPRESSION: Post reduction demonstrates near anatomic alignment
== END 2020-06-21 08:58 | disposition home or self-care (01) ==
LOC: EC 05:45
DX: M24.411 Recurrent dislocation, right shoulder (principal); K21.9 Gastro-esophageal reflux disease without esophagitis; F41.9 Anxiety disorder, unspecified; F17.200 Nicotine dependence, unspecified, uncomplicated; X50.3XXA Overexertion from repetitive movements, initial encounter
CPT/HCPCS: 96374; 96375; 99283

== ENCOUNTER 2020-06-24 06:21 | Emergency (ER) | payer OTHER ==
[2020-06-24 06:30] VITALS: TEMP 98.4
[2020-06-24] MEDS ORDERED: DIAZEPAM 5 MG/ML 2 ML INJ IM ONE (07:11)
[2020-06-24] MEDS ORDERED: MORPHINE SULFATE 4 MG/ML SYRINGE IM STA (07:11)
[2020-06-24] MEDS ORDERED: MORPHINE SULFATE 4 MG/ML SYRINGE IVP STA (07:25)
[2020-06-24] MEDS ORDERED: ONDANSETRON 4 MG/2 ML VIAL IVP STA (07:25)
--- NOTE | 2020-06-24 07:31 | ED ---
General Adult HPI <Fred Denson Ashia - Last Filed: 06/24/20 09:24> - General Source: patient Mode of arrival: wheelchair Limitations: no limitations <Sera Sarmiento - Last Filed: 06/24/20 10:17> - General Chief complaint: Extremity Problem,Nontraumatic Stated complaint: RT shoulder pain Time Seen by Provider: 06/24/20 06:58 - History of Present Illness Initial comments: 50 year-old male patient with past history significant for recurrent right shoulder dislocation. Patient states that he was sleeping and woke to onset of right shoulder pain. Patient feels that it is dislocated again. Patient was here a few days ago for the same. Patient reports some numbness or tingling to the right arm and hand. Denies any other injury or concern. (Sera Sarmiento) - Related Data Home Medications Medication Instructions Recorded Confirmed HYDROcodone/APAP 7.5-325MG [[place] 1 tab PO TID PRN 08/06/15 06/24/20 7.5-325] Aspirin EC [Ecotrin Low Dose] 81 mg PO DAILY 06/24/20 06/24/20 Previous Rx's Medication Instructions Recorded ALPRAZolam [Xanax] 2 mg PO TID PRN #10 tab 08/09/15 Allergies Allergy/AdvReac Type Severity Reaction Status Date / Time haloperidol Allergy Unknown Verified 06/24/20 07:27 Review of Systems ROS Other: All systems not noted in ROS Statement are negative. <Fred Denson Ashia - Last Filed: 06/24/20 09:24> ROS Other: All systems not noted in ROS Statement are negative. <Sera Sarmiento - Last Filed: 06/24/20 10:17> ROS Statement: Those systems with pertinent positive or pertinent negative responses have been documented in the HPI. Past Medical History Past Medical History: GERD/Reflux Additional Past Medical History / Comment(s): back pain, tourettes History of Any Multi-Drug Resistant Organisms: None Reported Past Surgical History: No Surgical Hx Reported Additional Past Surgical History / Comment(s): right meniscus, right eye. Past Anesthesia/Blood Transfusion Reactions: No Reported Reaction Past Psychological History: Anxiety, Schizophrenia Smoking Status: Current every day smoker Past Alcohol Use History: Daily, Heavy Past Drug Use History: None Reported <Sera Sarmiento - Last Filed: 06/24/20 10:17> General Exam Limitations: no limitations General appearance: alert, in no apparent distress, other (This well-developed, well-nourished adult male patient in no acute distress. Vital signs upon presentation are temperature 98.4F, pulse 118, respirations 20, blood pressure 143/90, pulse ox 95% on room air.) Eye exam: Present: normal appearance, PERRL, EOMI. Absent: scleral icterus, conjunctival injection, periorbital swelling ENT exam: Present: normal exam, normal oropharynx, mucous membranes moist Respiratory exam: Present: normal lung sounds bilaterally. Absent: respiratory distress, wheezes, rales, rhonchi, stridor Cardiovascular Exam: Present: regular rate, normal rhythm, normal heart sounds. Absent: systolic murmur, diastolic murmur, rubs, gallop, clicks Extremities exam: Present: full ROM, normal capillary refill, other (Skin to the right arm is pink, warm, dry. Cap refill less than 3 seconds. Radial pulses 2+.). Absent: tenderness, pedal edema, joint swelling, calf tenderness Neurological exam: Present: alert, oriented X3, CN II-XII intact Psychiatric exam: Present: normal affect, normal mood Skin exam: Present: warm, dry, intact, normal color. Absent: rash <Sera Sarmiento M - Last Filed: 06/24/20 10:17> Course Vital Signs 06/24/20 06/24/20 06/24/20 06:25 07:29 09:18 Temperature 98.4 F Pulse Rate 118 H 102 H Respiratory 20 18 18 Rate Blood Pressure 143/90 137/107 O2 Sat by Pulse 95 97 Oximetry 06/24/20 06/24/20 09:25 09:27 Temperature Pulse Rate 88 93 Respiratory 18 18 Rate Blood Pressure 106/88 129/93 O2 Sat by Pulse 97 95 Oximetry Procedures - Orthopedic Joint Reduction Joint #1 Consent Obtained: written consent Side: right Joint Reduction Location: shoulder Analgesia: procedural sedation Shoulder Technique Used (if applicable): traction/counter-traction, external ro tation Post-Reduction Neuro Exam: intact Post-Reduction Vascular Exam: intact Post Reduction X-Ray Obtained: Yes Post Reduction X-Ray Results: reduced Splint Applied: Yes Patient Tolerated Procedure: well - Procedural Sedation Procedural Sedation Start Time: 09:18 Procedural Sedation Stop Time: 09:50 Indications: fracture/dislocation reduction ASA Class: II Mallampati Airway Score: 2 Preparation: athletic monitor applied, pulse oximeter, capnometry used, supplemental O2 applied, suction/airway equipment at bedside IV Propofol Dose (mgs): 100 Complications: none Interventions: oxygen applied Patient Tolerated Procedure: well <Fred Denson - Last Filed: 06/24/20 09:24> Medical Decision Making - Radiology Data Radiology results: report reviewed, image reviewed <Sera Sarmiento - Last Filed: 06/24/20 10:17> - Medical Decision Making 50-year-old male patient presented to the emergency department for recurrent right shoulder dislocation. Physical examination did reveal right shoulder deformity with good neurovascular status. X-ray was obtained and did reveal anterior dislocation. My attending Dr. Denson did attempt to reduce without sedation this was unsuccessful. IV was started, patient was given conscious sedation, shoulder was reduced. He was placed in a sling. Postreduction x-ray showed anatomic reduction though the humeral head appears high riding. Neurovascular status remains intact. Patient did come around from sedation, vitals are stable, he is alert and oriented. He will be discharged to follow-up with orthopedic specialty for further evaluation as soon as possible. He is instructed to use sling until follow-up. Instructed to perform gentle range of motion to the shoulder. Return parameters were discussed in detail. He verbalizes understanding and agrees with this plan. My attending is Dr. Denson. (Sera Sarmiento) - Radiology Data 2 views of the right shoulder obtained. Report reviewed in its entirety. Impression by Dr. Larkin shows anterior dislocation of the right shoulder. No definitive evidence of acute fracture. 2 views of the right shoulder obtained. Report was reviewed in its entirety. Impression by Dr. Raymond shows interval reduction of the glenohumeral joint. However, the humeral head appears high riding. This may be technical due to projection. If clinical symptoms exam warrants, MRI can be used to exclude a traumatic tear of the rotator cuff. (Sera Sarmiento) Disposition <Fred Denson - Last Filed: 06/24/20 09:24> Is patient prescribed a controlled substance at d/c from ED?: No Time of Disposition: 10:03 <Sera Sarmiento - Last Filed: 06/24/20 10:17> Clinical Impression: Recurrent dislocation, right shoulder Disposition: HOME SELF-CARE Condition: Good Instructions (If sedation given, give patient instructions): Shoulder Dislocation (ED) Additional Instructions: Use sling until follow up with cash management specialist. Call for an appointment with orthopedics as soon as possible. Perform gentle range of motion exercises a few times per day. Return to the emergency department for any new, worsening, or concerning symptoms. Referrals: Ranulfo Puente MD [Primary Care Provider] - 1-2 days Ang Dahl DO [Doctor of Osteopathic Medicine] - 1-2 days
--- NOTE | 2020-06-24 07:36 | XR ---
EXAM: XR Right Shoulder Complete, 2 or More Views CLINICAL HISTORY: dislocation TECHNIQUE: Two or more views of the right shoulder. COMPARISON: 02/06/2020 FINDINGS: Bones/joints: Anterior dislocation of the right shoulder. No definitive evidence of acute fracture. Soft tissues: Unremarkable. IMPRESSION: Anterior dislocation of the right shoulder. No definitive evidence of acute fracture.
[2020-06-24] MEDS ORDERED: DIAZEPAM 5 MG/ML 2 ML INJ IVP STA (07:50)
[2020-06-24 08:05] VITALS: RESP 18
[2020-06-24] MEDS ORDERED: PROPOFOL 10 MG/ML 20 ML VIAL IV STA (08:25)
--- NOTE | 2020-06-24 09:39 | XR ---
EXAMINATION TYPE: XR shoulder limited RT DATE OF EXAM: 06/24/2020 COMPARISON: Earlier today HISTORY: 50-year-old male postreduction exam TECHNIQUE: Single AP view FINDINGS: Interval reduction of the glenohumeral joint. Mild degenerative change of the AC joint. No acute frac ture seen. The humeral head appears slightly high riding. IMPRESSION: Interval reduction of the glenohumeral joint. However, the humeral head appears high riding. This ma y be technical due to projection. If clinical symptoms/exam warrants, MRI can be used to exclude a tr aumatic tear of the rotator cuff.
[2020-06-24] MEDS ORDERED: ACET/COD 300 MG/30 MG STARTER PACK 6 TAB BTL PO STA (10:04)
[2020-06-24 10:37] VITALS: BP 120/77; PULSE 80
== END 2020-06-24 10:44 | disposition home or self-care (01) ==
LOC: EC 06:21
DX: M24.411 Recurrent dislocation, right shoulder (principal); K21.9 Gastro-esophageal reflux disease without esophagitis; F20.9 Schizophrenia, unspecified; F41.9 Anxiety disorder, unspecified; F17.200 Nicotine dependence, unspecified, uncomplicated; Z79.82 Long term (current) use of aspirin
CPT/HCPCS: 73020; 73030; 99283; 96374; 96375 ×3; 23650; J2270; J3360; J2405; J2704

== ENCOUNTER 2020-11-08 20:44 | Emergency (ER) | payer OTHER ==
[2020-11-08 21:00] VITALS: TEMP 98.7
--- NOTE | 2020-11-08 21:42 | XR ---
Result: Clinical History: Pain. Comparison: None available. Technique: 2 views of the right shoulder. Findings: There is anterior-inferior dislocation of the humeral head relative to the glenoid. No evidence of di splaced fracture. Impression: Anterior-inferior dislocation of the right glenohumeral joint.
[2020-11-08] MEDS ORDERED: SODIUM CHLORIDE 0.9% 1,000 ML IV STA (21:48)
[2020-11-08] MEDS ORDERED: HYDROmorphone 1 MG/ML 1 ML SYRINGE IVP STA ×2 (21:48→22:00)
[2020-11-08] MEDS ORDERED: PROPOFOL 10 MG/ML 20 ML VIAL IV STA (21:48)
--- NOTE | 2020-11-08 22:00 | ED ---
Upper Extremity HPI - General Chief Complaint: Extremity Injury, Upper Stated Complaint: shoulder injury Time Seen by Provider: 11/08/20 21:20 Source: patient, RN notes reviewed, old records reviewed Mode of arrival: ambulatory Limitations: no limitations - History of Present Illness Initial Comments: This is a 50-year-old male to the ER for evaluation patient presents today for evaluation regards to recurrent right shoulder dislocation. She does admit alcohol intoxication states he woke up with shoulder out of place. Patient does have multiple recurrent ER visits for similar issue. No other complaints of pain or injury. MD Complaint: Injury to:: right, shoulder -: hour(s) Other Extremity Injury: Shoulder: Right Other Injuries: none Handedness: right Place: home Severity scale (1-10): 10 Improves With: none Worsens With: none Context: other (Patient was sleeping so unknown) Associated Symptoms: denies other symptoms Treatments Prior to Arrival: other (none) - Related Data Home Medications Medication Instructions Recorded Confirmed HYDROcodone/APAP 7.5-325MG [[place] 1 tab PO TID PRN 08/06/15 06/24/20 7.5-325] Aspirin EC [Ecotrin Low Dose] 81 mg PO DAILY 06/24/20 06/24/20 Previous Rx's Medication Instructions Recorded ALPRAZolam [Xanax] 2 mg PO TID PRN #10 tab 08/09/15 Allergies Allergy/AdvReac Type Severity Reaction Status Date / Time haloperidol Allergy Unknown Verified 11/08/20 21:00 Review of Systems ROS Statement: Those systems with pertinent positive or pertinent negative responses have been documented in the HPI. ROS Other: All systems not noted in ROS Statement are negative. Past Medical History Past Medical History: GERD/Reflux Additional Past Medical History / Comment(s): back pain, tourettes, shoulder injury History of Any Multi-Drug Resistant Organisms: None Reported Past Surgical History: Orthopedic Surgery Additional Past Surgical History / Comment(s): right meniscus, right eye. Past Anesthesia/Blood Transfusion Reactions: No Reported Reaction Past Psychological History: Anxiety, Schizophrenia Smoking Status: Current every day smoker Past Alcohol Use History: Daily, Heavy Past Drug Use History: None Reported General Exam Limitations: no limitations General appearance: alert, in no apparent distress Head exam: Present: atraumatic, normocephalic, normal inspection Eye exam: Present: normal appearance, PERRL, EOMI. Absent: scleral icterus, conjunctival injection, periorbital swelling ENT exam: Present: normal exam, mucous membranes moist Neck exam: Present: normal inspection. Absent: tenderness, meningismus, lymphadenopathy Respiratory exam: Present: normal lung sounds bilaterally. Absent: respiratory distress, wheezes, rales, rhonchi, stridor Cardiovascular Exam: Present: regular rate, normal rhythm, normal heart sounds. Absent: systolic murmur, diastolic murmur, rubs, gallop, clicks GI/Abdominal exam: Present: soft, normal bowel sounds. Absent: distended, tenderness, guarding, rebound, rigid Extremities exam: Present: tenderness, normal capillary refill, other (Obvious right shoulder deformity). Absent: normal inspection, full ROM, pedal edema, joint swelling, calf tenderness Back exam: Present: normal inspection Neurological exam: Present: alert, oriented X3, CN II-XII intact Psychiatric exam: Present: normal affect, normal mood Skin exam: Present: warm, dry, intact, normal color. Absent: rash Course Vital Signs 11/08/20 11/08/20 11/08/20 20:55 22:00 22:15 Temperature 98.7 F Pulse Rate 88 95 89 Respiratory 22 18 18 Rate Blood Pressure 150/104 137/92 127/70 O2 Sat by Pulse 97 98 95 Oximetry 11/08/20 11/08/20 22:20 22:30 Temperature Pulse Rate 88 96 Respiratory 12 18 Rate Blood Pressure 106/83 141/50 O2 Sat by Pulse 100 94 L Oximetry - Reevaluation(s) Reevaluation #1: 11/08/20 22:48 Medical record is reviewed Reevaluation #2: 11/08/20 22:48 Patient is feeling better after relocation of right shoulder Reevaluation #3: 11/08/20 22:49 Patient awake and alert able to ambulate and does have family to take him home Procedures - Orthopedic Joint Reduction Joint #1 Consent Obtained: verbal consent Side: right Joint Reduction Location: shoulder Analgesia: procedural sedation Shoulder Technique Used (if applicable): traction/counter-traction, external rotation Post-Reduction Neuro Exam: intact Post Reduction X-Ray Obtained: Yes Post Reduction X-Ray Results: reduced Splint Applied: Yes Patient Tolerated Procedure: well - Procedural Sedation Procedural Sedation Start Time: 22:10 Procedural Sedation Stop Time: 22:45 Indications: fracture/dislocation reduction ASA Class: I Mallampati Airway Score: 1 Preparation: cardiac cath technologist applied, pulse oximeter, capnometry used IV Propofol Dose (mgs): 200 Reversal Agents Used: other (none) Complications: none Interventions: oxygen applied Patient Tolerated Procedure: well Medical Decision Making - Medical Decision Making 50 male who presents today for evaluation patient presents today for evaluation of recurrent right shoulder dislocation. Shoulder is reduced here in the ER patient can be discharged home - Radiology Data Radiology results: report reviewed (X-ray right shoulder positive for dislocation, repeat x-rays positive for relocation), image reviewed Disposition Clinical Impression: Dislocation of shoulder region, Recurrent dislocation, right shoulder Disposition: HOME SELF-CARE Condition: Good Instructions (If sedation given, give patient instructions): Shoulder Dislocation (ED) Is patient prescribed a controlled substance at d/c from ED?: No Referrals: Ranulfo Puente MD [Primary Care Provider] - 1-2 days
[2020-11-08 22:31] VITALS: RESP 18
--- NOTE | 2020-11-08 22:34 | XR ---
EXAMINATION TYPE: XR shoulder limited RT DATE OF EXAM: 11/08/2020 COMPARISON: Today HISTORY: Shoulder pain. TECHNIQUE: Single view FINDINGS: There is anatomic position of the glenohumeral joint. AC joint is intact. I see no fracture . IMPRESSION: Anatomic reduction of the shoulder joint.
[2020-11-08 23:02] VITALS: BP 111/79; PULSE 88
== END 2020-11-08 23:14 | disposition home or self-care (01) ==
LOC: EC 20:44
DX: M24.411 Recurrent dislocation, right shoulder (principal); K21.9 Gastro-esophageal reflux disease without esophagitis; F10.129 Alcohol abuse with intoxication, unspecified; F41.9 Anxiety disorder, unspecified; F20.9 Schizophrenia, unspecified; F17.200 Nicotine dependence, unspecified, uncomplicated; Z79.82 Long term (current) use of aspirin; Y90.9 Presence of alcohol in blood, level not specified
CPT/HCPCS: 99284; 96374; 96361; 23650; 99152; 99153; 73020; J1170; J2704

== ENCOUNTER 2021-10-12 07:20 | Emergency (ER) | payer OTHER ==
[2021-10-12 07:34] VITALS: TEMP 98.3
[2021-10-12] MEDS ORDERED: HYDROmorphone 0.5 MG/0.5 ML SYRINGE IVP STA (07:39)
--- NOTE | 2021-10-12 07:43 | ED ---
General Adult HPI - General Chief complaint: Extremity Problem,Nontraumatic Stated complaint: Shoulder Injury Time Seen by Provider: 10/12/21 07:25 Source: patient, RN notes reviewed, old records reviewed Mode of arrival: ambulatory Limitations: no limitations - History of Present Illness Initial comments: This is a 51-year-old male who presents emergency Department states she's had his right shoulder dislocated many times in the past. Patient states he woke up today and rolled over her shoulder came out. Patient states he try to get up again but would not go so he wanted to come to the emergency department. Patient denies any blunt trauma the shoulder. Patient denies any other problems at this time. Patient states she's been told he needs surgery but he has not gotten it. Patient states last episode that was about a year ago. - Related Data Home Medications Medication Instructions Recorded Confirmed HYDROcodone/APAP 7.5-325MG [[place] 1 tab PO TID PRN 08/06/15 06/24/20 7.5-325] Aspirin EC [Ecotrin Low Dose] 81 mg PO DAILY 06/24/20 06/24/20 Previous Rx's Medication Instructions Recorded ALPRAZolam [Xanax] 2 mg PO TID PRN #10 tab 08/09/15 Allergies Allergy/AdvReac Type Severity Reaction Status Date / Time haloperidol Allergy Unknown Verified 10/12/21 07:26 Review of Systems ROS Statement: Those systems with pertinent positive or pertinent negative responses have been documented in the HPI. ROS Other: All systems not noted in ROS Statement are negative. Past Medical History Past Medical History: GERD/Reflux Additional Past Medical History / Comment(s): back pain, tourettes, shoulder injury History of Any Multi-Drug Resistant Organisms: None Reported Past Surgical History: Orthopedic Surgery Additional Past Surgical History / Comment(s): right meniscus, right eye. Past Anesthesia/Blood Transfusion Reactions: No Reported Reaction Past Psychological History: Anxiety, Schizophrenia Smoking Status: Current every day smoker Past Alcohol Use History: Daily, Heavy Past Drug Use History: None Reported General Exam - General Exam Comments Initial Comments: GENERAL Patient is well-developed and well-nourished. Patient is in mild distress. EYES Patient's pupils are equal and round. Extraocular motion is intact SKIN Unremarkable NEURO The patient is alert and oriented 3 PYSCH Patient has normal interpersonal interactions. MUSCULOSKELETAL Patient has a deficit at the humeral head indicative of shoulder dislocation. Patient is unable to move it secondary to pain. Limitations: no limitations Course Vital Signs 10/12/21 10/12/21 10/12/21 07:21 08:29 08:34 Temperature 98.3 F Pulse Rate 92 86 90 Respiratory 18 16 16 Rate Blood Pressure 145/96 145/91 139/100 O2 Sat by Pulse 97 97 99 Oximetry 10/12/21 10/12/21 08:37 08:40 Temperature Pulse Rate 72 84 Respiratory 16 16 Rate Blood Pressure 132/99 146/65 O2 Sat by Pulse 99 95 Oximetry Procedures - Orthopedic Joint Reduction Joint #1 Consent Obtained: written consent Side: right Joint Reduction Location: shoulder Analgesia: procedural sedation Shoulder Technique Used (if applicable): traction/counter-traction Post Reduction X-Ray Obtained: Yes Post Reduction X-Ray Results: reduced Splint Applied: Yes Patient Tolerated Procedure: well - Procedural Sedation Procedural Sedation Start Time: 08:33 Procedural Sedation Stop Time: 09:05 Mallampati Airway Score: 2 Preparation: i&c tech applied, pulse oximeter, supplemental O2 applied IV Etomidate Dose (mgs): 15 Complications: none Patient Tolerated Procedure: well Medical Decision Making - Medical Decision Making X-ray of the shoulder shows anterior dislocation. Conscious sedation was done and etomidate was used and joint was reduced see procedure note. Postreduction of the shoulder shows reduction of the shoulder. Disposition Clinical Impression: Shoulder dislocation Disposition: HOME SELF-CARE Condition: Good Instructions (If sedation given, give patient instructions): Moderate Sedation (ED), Shoulder Dislocation (ED) Is patient prescribed a controlled substance at d/c from ED?: No Referrals: Ranulfo Puente MD [Primary Care Provider] - 1-2 days Time of Disposition: 09:24
--- NOTE | 2021-10-12 08:08 | XR ---
EXAMINATION TYPE: XR shoulder complete RT DATE OF EXAM: 10/12/2021 CLINICAL HISTORY: pain TECHNIQUE: Three views of the right shoulder are obtained. COMPARISON: 11/08/2020 FINDINGS: There is anterior dislocation of the humerus relative to the glenoid. I do not see evidence for fracture. AC joint arthropathy identified. IMPRESSION: 1. There is anterior dislocation of the humerus relative to the glenoid.
[2021-10-12] MEDS ORDERED: ETOMIDATE 2 MG/ML 10 ML VIAL IVP STA ×3 (08:19→08:46)
[2021-10-12 08:34] VITALS: RESP 16
[2021-10-12 08:45] VITALS: BP 146/65; PULSE 84
--- NOTE | 2021-10-12 09:19 | XR ---
EXAMINATION TYPE: XR shoulder limited RT DATE OF EXAM: 10/12/2021 COMPARISON: NONE HISTORY: Postreduction TECHNIQUE: Single postreduction view right shoulder FINDINGS: There is relocation of the humerus relative to the glenoid. No evidence for fracture. IMPRESSION: Appropriate post reduction
== END 2021-10-12 09:50 | disposition home or self-care (01) ==
LOC: EC 07:20
DX: S43.004A Unspecified dislocation of right shoulder joint, initial encounter (principal); F17.200 Nicotine dependence, unspecified, uncomplicated; Z88.8 Allergy status to other drugs, medicaments and biological substances; X58.XXXA Exposure to other specified factors, initial encounter
CPT/HCPCS: 99283; 23650; 99152; 96374; 73020; 73030; J1170

== ENCOUNTER 2022-02-18 23:08 | Emergency (ER) | payer OTHER ==
[2022-02-18 23:13] VITALS: TEMP 98
[2022-02-18] MEDS ORDERED: PROPOFOL 10 MG/ML 20 ML VIAL IV ONE (23:27)
[2022-02-18] MEDS ORDERED: SODIUM CHLORIDE 0.9% 500 ML 500 ML IV STA (23:27)
--- NOTE | 2022-02-18 23:29 | ED ---
Upper Extremity HPI - General Chief Complaint: Extremity Injury, Upper Stated Complaint: Right Shoulder Dislocated Time Seen by Provider: 02/18/22 23:27 Source: patient, RN notes reviewed, old records reviewed Mode of arrival: ambulatory Limitations: no limitations - History of Present Illness Initial Comments: This is a 51-year-old male DF for evaluation. Patient presents today for evaluation of right shoulder dislocation. Patient has a history of recurrent right shoulder dislocation. This dislocation today occurred well patient was sleeping he woke up and I was dislocated. Patient has no complaints and does admit intoxication MD Complaint: Injury to:: right, shoulder -: hour(s) Other Extremity Injury: Shoulder: Right Handedness: right Place: home Severity scale (1-10): 10 Improves With: none Worsens With: none Context: other Associated Symptoms: heard/felt popping sensat - Related Data Home Medications Medication Instructions Recorded Confirmed HYDROcodone/APAP 7.5-325MG [[place] 1 tab PO TID PRN 08/06/15 06/24/20 7.5-325] Aspirin EC [Ecotrin Low Dose] 81 mg PO DAILY 06/24/20 06/24/20 Previous Rx's Medication Instructions Recorded ALPRAZolam [Xanax] 2 mg PO TID PRN #10 tab 08/09/15 Allergies Allergy/AdvReac Type Severity Reaction Status Date / Time haloperidol Allergy Unknown Verified 02/18/22 23:13 Review of Systems ROS Statement: Those systems with pertinent positive or pertinent negative responses have been documented in the HPI. ROS Other: All systems not noted in ROS Statement are negative. Past Medical History Past Medical History: GERD/Reflux Additional Past Medical History / Comment(s): back pain, tourettes, shoulder injury History of Any Multi-Drug Resistant Organisms: None Reported Past Surgical History: Orthopedic Surgery Additional Past Surgical History / Comment(s): right meniscus, right eye. Past Anesthesia/Blood Transfusion Reactions: No Reported Reaction Past Psychological History: Anxiety, Schizophrenia Smoking Status: Current every day smoker Past Alcohol Use History: Daily, Heavy Past Drug Use History: None Reported General Exam - General Exam Comments Initial Comments: R shoulder deformity Limitations: no limitations General appearance: alert, in no apparent distress Head exam: Present: atraumatic, normocephalic, normal inspection Eye exam: Present: normal appearance, PERRL, EOMI. Absent: scleral icterus, conjunctival injection, periorbital swelling ENT exam: Present: normal exam, mucous membranes moist Neck exam: Present: normal inspection. Absent: tenderness, meningismus, lymphadenopathy Respiratory exam: Present: normal lung sounds bilaterally. Absent: respiratory distress, wheezes, rales, rhonchi, stridor Cardiovascular Exam: Present: regular rate, normal rhythm, normal heart sounds. Absent: systolic murmur, diastolic murmur, rubs, gallop, clicks GI/Abdominal exam: Present: soft, normal bowel sounds. Absent: distended, tenderness, guarding, rebound, rigid Extremities exam: Present: normal inspection, full ROM, normal capillary refill. Absent: tenderness, pedal edema, joint swelling, calf tenderness Back exam: Present: normal inspection Neurological exam: Present: alert, oriented X3, CN II-XII intact Psychiatric exam: Present: normal affect, normal mood Skin exam: Present: warm, dry, intact, normal color. Absent: rash Course Vital Signs 02/18/22 02/19/22 02/19/22 23:10 00:19 00:20 Temperature 98 F Pulse Rate 110 H 98 112 H Respiratory 20 16 18 Rate Blood Pressure 135/90 134/98 113/65 O2 Sat by Pulse 96 98 95 Oximetry 02/19/22 02/19/22 02/19/22 00:25 00:40 00:53 Temperature Pulse Rate 103 H 88 86 Respiratory 16 16 16 Rate Blood Pressure 128/52 112/91 116/83 O2 Sat by Pulse 96 97 98 Oximetry - Reevaluation(s) Reevaluation #1: 02/18/22 medical record is reviewed patient symptoms improved here in the ED patient informed of results and questions answered Procedures - Orthopedic Joint Reduction Joint #1 Consent Obtained: verbal consent Side: right Joint Reduction Location: shoulder Analgesia: procedural sedation Shoulder Technique Used (if applicable): traction/counter-traction, external rotation Post-Reduction Neuro Exam: intact Post-Reduction Vascular Exam: intact Post Reduction X-Ray Obtained: Yes Post Reduction X-Ray Results: reduced Splint Applied: Yes Patient Tolerated Procedure: well - Procedural Sedation Procedural Sedation Start Time: 00:20 Procedural Sedation Stop Time: 00:55 Indications: fracture/dislocation reduction ASA Class: III Mallampati Airway Score: 3 Preparation: pvc monitor applied, pulse oximeter, capnometry used IV Propofol Dose (mgs): 200 Complications: none Interventions: oxygen applied Patient Tolerated Procedure: well Medical Decision Making - Medical Decision Making 51 male DF for evaluation of right shoulder dislocation. Right shoulder was dislocated and read dizziness here in the ER patient can be discharged home - Radiology Data Radiology results: report reviewed (X-ray right shoulder positive for dislocation), image reviewed Disposition Clinical Impression: Recurrent dislocation, right shoulder Disposition: HOME SELF-CARE Condition: Good Instructions (If sedation given, give patient instructions): Shoulder Dislocation (ED), Moderate Sedation (ED) Is patient prescribed a controlled substance at d/c from ED?: No Referrals: Ranulfo Puente MD [Primary Care Provider] - 1-2 days Time of Disposition: 00:50
--- NOTE | 2022-02-19 00:06 | XR ---
EXAMINATION TYPE: XR shoulder complete RT DATE OF EXAM: 02/18/2022 COMPARISON: 10/12/2021 HISTORY: Fall. Pain TECHNIQUE: 2 views FINDINGS: There is anterior dislocation of the glenohumeral joint. No fracture seen. IMPRESSION: Right shoulder joint dislocation.
[2022-02-19] MEDS ORDERED: PROPOFOL 10 MG/ML 20 ML VIAL IV ONE (00:11)
[2022-02-19] MEDS ORDERED: HYDROmorphone 1 MG/ML 1 ML SYRINGE IVP STA (00:11)
[2022-02-19 00:29] VITALS: RESP 16
--- NOTE | 2022-02-19 00:35 | XR ---
EXAMINATION TYPE: XR shoulder limited RT DATE OF EXAM: 02/19/2022 COMPARISON: Today HISTORY: Post reduction TECHNIQUE: Single view FINDINGS: There is anatomic reduction of the glenohumeral joint. No fracture seen. IMPRESSION: Anatomic reduction.
[2022-02-19 00:54] VITALS: BP 116/83; PULSE 86
== END 2022-02-19 01:11 | disposition home or self-care (01) ==
LOC: EC 23:08
DX: M24.411 Recurrent dislocation, right shoulder (principal); F17.200 Nicotine dependence, unspecified, uncomplicated; K21.9 Gastro-esophageal reflux disease without esophagitis; Z88.8 Allergy status to other drugs, medicaments and biological substances; Z79.82 Long term (current) use of aspirin
CPT/HCPCS: 73020; 73030; 23650; 96374; 96361; 99284; 99152; 99153; J1170; J2704

== ENCOUNTER 2022-07-09 10:46 | Emergency (ER) | payer OTHER ==
[2022-07-09 11:19] VITALS: TEMP 99
[2022-07-09] MEDS ORDERED: HYDROmorphone 0.5 MG/0.5 ML SYRINGE IVP STA (11:35)
[2022-07-09] MEDS ORDERED: KETOROLAC 15 MG/ML 1 ML VIAL IVP STA ×2 (11:35→13:35)
--- NOTE | 2022-07-09 11:55 | ED ---
Upper Extremity HPI <Vijay Olguin - Last Filed: 07/09/22 13:04> - General Source: patient, RN notes reviewed Mode of arrival: ambulatory Limitations: physical limitation - History of Present Illness MD Complaint: Injury to:: right, shoulder <Jess Green - Last Filed: 07/10/22 07:26> - General Chief Complaint: Extremity Injury, Upper Stated Complaint: rt shoulder injury Time Seen by Provider: 07/09/22 11:32 - History of Present Illness Initial Comments: This is a 52-year-old male who presents to the emergency department for a right shoulder injury. Patient has a history of recurrent shoulder dislocations. States that when he woke up this morning, it was dislocated again. Patient requests conscious sedation in order to have this reduced. He did see Dr. Dahl previously regarding the recurrent dislocations, but was told that nothing could be done. He has since not followed up with any orthopedic providers. Denies any fevers, chills, sore throat, cough, dyspnea, chest pain, palpitations, abdominal pain, nausea, vomiting, diarrhea, back pain, or headaches. (Jess Green) - Related Data Home Medications Medication Instructions Recorded Confirmed HYDROcodone/APAP 7.5-325MG [[place] 1 tab PO TID PRN 08/06/15 06/24/20 7.5-325] Aspirin EC [Ecotrin Low Dose] 81 mg PO DAILY 06/24/20 06/24/20 Previous Rx's Medication Instructions Recorded ALPRAZolam [Xanax] 2 mg PO TID PRN #10 tab 08/09/15 Allergies Allergy/AdvReac Type Severity Reaction Status Date / Time haloperidol Allergy Unknown Verified 07/09/22 11:19 Review of Systems ROS Other: All systems not noted in ROS Statement are negative. <Vijay Olguin - Last Filed: 07/09/22 13:04> ROS Other: All systems not noted in ROS Statement are negative. <Jess Green - Last Filed: 07/10/22 07:26> ROS Statement: Those systems with pertinent positive or pertinent negative responses have been documented in the HPI. Past Medical History Past Medical History: GERD/Reflux Additional Past Medical History / Comment(s): back pain, tourettes, shoulder injury, right shoulder dislocation x 8 History of Any Multi-Drug Resistant Organisms: None Reported Past Surgical History: Orthopedic Surgery Additional Past Surgical History / Comment(s): right meniscus, right eye. Past Anesthesia/Blood Transfusion Reactions: No Reported Reaction Past Psychological History: Anxiety, Schizophrenia Smoking Status: Current every day smoker Past Alcohol Use History: Daily, Heavy Past Drug Use History: None Reported <Jess Green - Last Filed: 07/10/22 07:26> General Exam Limitations: physical limitation General appearance: alert, in distress Head exam: Present: atraumatic, normocephalic, normal inspection Respiratory exam: Present: normal lung sounds bilaterally. Absent: respiratory distress, wheezes, rales, rhonchi, stridor Cardiovascular Exam: Present: regular rate, normal rhythm, normal heart sounds. Absent: systolic murmur, diastolic murmur, rubs, gallop, clicks Extremities exam: Present: other (Prominence of the acromion and humeral head on the right side with flattening of the shoulder. The elbow is flexed and the arm is held in slight abduction. 2+ radial pulses and capillary refill <1 second.) Neurological exam: Present: alert, oriented X3, CN II-XII intact Psychiatric exam: Present: normal affect, normal mood Skin exam: Present: warm, dry, intact, normal color. Absent: rash <Jess Green - Last Filed: 07/10/22 07:26> Course Vital Signs 07/09/22 07/09/22 07/09/22 11:16 12:40 12:50 Temperature 99.0 F Pulse Rate 106 H 87 104 H Respiratory 18 18 16 Rate Blood Pressure 128/88 128/104 142/122 O2 Sat by Pulse 96 100 97 Oximetry 07/09/22 07/09/22 07/09/22 13:00 13:05 13:10 Temperature Pulse Rate 87 97 85 Respiratory 16 16 16 Rate Blood Pressure 138/123 130/107 123/90 O2 Sat by Pulse 96 98 99 Oximetry Procedures - Procedural Sedation *Procedural Sedation Start Time: 12:50 *Procedural Sedation Stop Time: 12:20 *Indications: fracture/dislocation reduction *Previous Adverse Reaction to Anesthesia/Sedation?: No *ASA Class: II *Mallampati Airway Score: 2 *Time of Last PO Intake: 01:00 Preparation: monitoring tech applied, pulse oximeter, supplemental O2 applied IV Propofol Dose (mgs): 125 Complications: none Patient Tolerated Procedure: well <Vijay Olguin - Last Filed: 07/09/22 13:04> - Orthopedic Joint Reduction Joint #1 Consent Obtained: verbal consent Side: right Joint Reduction Location: shoulder Analgesia: procedural sedation Shoulder Technique Used (if applicable): traction/counter-traction Post-Reduction Neuro Exam: intact Post-Reduction Vascular Exam: intact Post Reduction X-Ray Obtained: Yes Post Reduction X-Ray Results: reduced Splint Applied: Yes (Arm Sling) Patient Tolerated Procedure: well, no complications <Jess Green - Last Filed: 07/10/22 07:26> Medical Decision Making - Radiology Data Radiology results: report reviewed, image reviewed <Jess Green - Last Filed: 07/10/22 07:26> - Medical Decision Making This is a 52-year-old male who presents to the emergency department for right shoulder pain. Was pt. sent in by a medical professional or institution? @ -No Did you speak to anyone other than the patient for history? @ -No Did you review nursing and triage notes? @ -Yes, and I agree, it is accurate with regards to the patient's symptoms. Were old charts reviewed? @ -No Differential Diagnosis? @ -Differential Shoulder Pain: Fracture, dislocation, contusion, rotator cuff injury, AC joint separation, sprain, this is not meant to be an all-inclusive list. X-rays interpreted by me (1pt min.)? @ -X-ray of the right shoulder obtained. My interpretation reveals an anterior shoulder dislocation. What testing was considered but not performed? (CT, X-rays, U/S, labs)? Why? @ -None What meds were considered but not given? Why? @ -None Did you discuss the management of the patient with other professionals? @ -No Did you reconcile home meds? @ -No Was smoking cessation discussed for >3mins.? @ -No Was critical care preformed (if so, how long)? @ -No Were there social determinants of health that impacted care today? How? (Homelessness, low income, unemployed, alcoholism, drug addiction, transportation, low edu. Level, literacy, decrease access to med. care, half-way, rehab)? @ -No Was there de-escalation of care discussed even if they declined? (Discuss DNR or withdrawal of care, Hospice)? @ -No What co-morbidities impacted this encounter? (DM, HTN, Smoking, COPD, CAD, Cancer, CVA, Hep., AIDS, mental health diagnosis, sleep apnea, morbid obesity)? @ -Chronic shoulder injury Was patient admitted / discharged? @ -Discharged. X-rays obtained revealing an anterior inferior shoulder dislocation. Conscious sedation with propofol was used for reduction. This was successfully reduced by ED attending Dr. Olguin. Postprocedure x-rays obtained revealing successful reduction. He was neurovascularly intact both before and following the reduction. He was placed in an arm sling. He noted significant relief following the procedure. After the patient woke up from the sedation and was back to his baseline, he was discharged home in stable condition with his . Advised ibuprofen and Tylenol as needed for pain relief. He was given information for follow-up with [facility] to discuss the recurrent dislocation to see if there can be anything done to solve the problem. Undiagnosed new problem with uncertain prognosis? @ -None Drug Therapy requiring intensive monitoring for toxicity (Heparin, Nitro, Ins ulin, Cardizem)? @ -None Were any procedures done? @ -Yes, conscious sedation for right shoulder reduction. Diagnosis/symptom? @ -Right shoulder dislocation Acute, or Chronic, or Acute on Chronic? @ -Acute Uncomplicated (without systemic symptoms) or Complicated (systemic symptoms)? @ -Uncomplicated Side effects of treatment? @ -None Exacerbation, Progression, or Severe Exacerbation] @ -Not applicable Poses a threat to life or bodily function? @ -May make it difficult to use the right shoulder for a period of time. Return precautions reviewed in depth, the patient is instructed to return to the emergency department with any new, worsening, or concerning symptoms. Patient verbalized understanding. This case was discussed in detail with the attending ED physician, Dr. Olguin. Presentation, findings, and treatment plan discussed in detail as well. (Jess Green) Disposition <Vijay Olguin - Last Filed: 07/09/22 13:04> Is patient prescribed a controlled substance at d/c from ED?: No <Jess Green - Last Filed: 07/10/22 07:26> Clinical Impression: Recurrent dislocation, right shoulder, Anterior dislocation of right shoulder Disposition: HOME SELF-CARE Instructions (If sedation given, give patient instructions): Shoulder Dislocation (ED), Moderate Sedation (ED) Additional Instructions: Return to the emergency department with any new, worsening, or concerning symptoms. Alternate with ibuprofen and Tylenol as needed for pain relief. Contacts the other orthopedic office as listed below regarding the problem with recurrent shoulder dislocations to see if there are any treatment options. Follow up with your primary care provider in 1-2 days. Referrals: Ranulfo Puente MD [Primary Care Provider] - 1-2 days Janki Villalta DO [Doctor of Osteopathic Medicine] - 1-2 days
--- NOTE | 2022-07-09 12:16 | XR ---
EXAMINATION TYPE: XR shoulder complete RT DATE OF EXAM: 07/09/2022 COMPARISON: NONE HISTORY: Pain TECHNIQUE: Shoulder examined in 2 projections. FINDINGS: There is dislocation of the humeral head from the glenoid anterior and inferior The acromio-clavicular junction is normal. No acute fractures are evident. A follow up study can be performed 7-10 days from acute trauma for continued pain. MRI can be perfor med if soft tissue evaluation would be of benefit. IMPRESSION: 1. Dislocation of the humeral head from the glenoid.
[2022-07-09] MEDS ORDERED: PROPOFOL 10 MG/ML 20 ML VIAL IV ONE (12:23)
--- NOTE | 2022-07-09 13:10 | XR ---
EXAMINATION TYPE: XR shoulder limited RT DATE OF EXAM: 07/09/2022 COMPARISON: Earlier exam HISTORY: Dislocation TECHNIQUE: Single AP view right shoulder FINDINGS: Humeral head articulates with the glenoid. Acromioclavicular junction appears within normal limits. No acute fractures are evident. IMPRESSION: 1. Reduction of prior right shoulder dislocation.
[2022-07-09] MEDS ORDERED: ACET/COD 300 MG/30 MG STARTER PACK 6 TAB BTL PO STA (13:23)
[2022-07-09] MEDS ORDERED: IBUPROFEN 600 MG STARTER PACK 4 TAB BTL PO STA (13:23)
[2022-07-09] MEDS ORDERED: HYDROcodone/APAP 5-325MG 1 EACH TAB PO STA (13:34)
[2022-07-09 13:39] VITALS: BP 123/90; PULSE 85; RESP 16
== END 2022-07-09 14:00 | disposition home or self-care (01) ==
LOC: EC 10:46
DX: S43.014A Anterior dislocation of right humerus, initial encounter (principal); F17.200 Nicotine dependence, unspecified, uncomplicated; Z88.8 Allergy status to other drugs, medicaments and biological substances; X58.XXXA Exposure to other specified factors, initial encounter
CPT/HCPCS: 73020; 73030; 23650; 99284; 96374; 96375; 96376; J1885; J2704; J1170

== ENCOUNTER 2022-11-24 02:20 | Emergency (ER) | payer OTHER ==
[2022-11-24 02:28] VITALS: TEMP 97.8
[2022-11-24] MEDS ORDERED: HYDROmorphone 1 MG/ML 1 ML SYRINGE IVP STA (02:46)
[2022-11-24] MEDS ORDERED: SODIUM CHLORIDE 0.9% 1,000 ML IV STA (02:46)
[2022-11-24] MEDS ORDERED: LIDOCAINE 2% INJ 20 MG/ML (20 ML MDV) SQ STA (02:46)
[2022-11-24 03:02] VITALS: BP 128/86; PULSE 72; RESP 19
--- NOTE | 2022-11-24 03:29 | ED ---
General Adult HPI - General Chief complaint: Extremity Injury, Upper Stated complaint: Dislocated right shoulder Time Seen by Provider: 11/24/22 02:37 Source: patient, family, RN notes reviewed, old records reviewed Mode of arrival: EMS Limitations: no limitations - History of Present Illness Initial comments: Patient is a 52-year-old male with past medical history remarkable for alcohol abuse, recurrent right shoulder dislocations who presents emergency Department with a right shoulder dislocation. Occurred earlier today. Presents with his who is sober. Patient is currently intoxicated with alcohol. Is unable to move shoulder. Patient is screaming obscenities. He denies any obvious injuries otherwise. The shoulder dislocated when his arm was moved out of the way when trying to turn up the volume on the radio in the car. Denies any head injuries. Is not on blood thinners. Denies any abdominal pain, nausea, vomiting. Denies any chest pain or shortness breath. Presents for a shoulder dislocation. Is requesting Dilaudid. - Related Data Home Medications Medication Instructions Recorded Confirmed HYDROcodone/APAP 7.5-325MG [[place] 1 tab PO TID PRN 08/06/15 06/24/20 7.5-325] Aspirin EC [Ecotrin Low Dose] 81 mg PO DAILY 06/24/20 06/24/20 Previous Rx's Medication Instructions Recorded ALPRAZolam [Xanax] 2 mg PO TID PRN #10 tab 08/09/15 Allergies Allergy/AdvReac Type Severity Reaction Status Date / Time haloperidol Allergy Unknown Verified 07/09/22 11:19 Review of Systems ROS Statement: Those systems with pertinent positive or pertinent negative responses have been documented in the HPI. Review of Systems: CONST: Denies fever EYES: Denies blurry vision ENT: Denies nasal congestion C/V: Denies Chest pain RESP: Denies shortness of breath GI: Denies abdominal pain : Denies dysuria SKIN: Denies rash. MSK: Endorses right shoulder pain NEURO: Denies headache ROS Other: All systems not noted in ROS Statement are negative. Past Medical History Past Medical History: GERD/Reflux Additional Past Medical History / Comment(s): back pain, tourettes, shoulder injury, right shoulder dislocation x 8 History of Any Multi-Drug Resistant Organisms: None Reported Past Surgical History: Orthopedic Surgery Additional Past Surgical History / Comment(s): right meniscus, right eye. Past Anesthesia/Blood Transfusion Reactions: No Reported Reaction Past Psychological History: Anxiety, Schizophrenia Smoking Status: Current every day smoker Past Alcohol Use History: Daily, Heavy Past Drug Use History: None Reported General Exam - General Exam Comments Initial Comments: General: Appears acutely intoxicated with alcohol. HEAD: Normal with no signs of head trauma. EYES: EOMI. ENT: Hearing grossly intact. RESPIRATORY: No respiratory distress. C/V: Regular rate and rhythm. ABD: Abdomen is nondistended. EXT: Obvious deformity to the right shoulder, suspect dislocation. Appears to be neurovascularly intact. Decreased range of motion of the right shoulder secondary to suspected dislocation SKIN: No rashes or lesions observed on exposed skin. NEURO: Alert and oriented. Limitations: no limitations Course Vital Signs 11/24/22 11/24/22 02:24 03:00 Temperature 97.8 F Pulse Rate 85 72 Respiratory 18 19 Rate Blood Pressure 113/72 128/86 O2 Sat by Pulse 98 96 Oximetry Procedures - Orthopedic Joint Reduction Joint #1 Consent Obtained: verbal consent Side: right Joint Reduction Location: shoulder Analgesia: hematoma block, other (systemic dilaudid for pain.) Local Anesthetic Used: Lidocaine 2% Amount of Anesthetic Used (mLs): 5 Shoulder Technique Used (if applicable): traction/counter-traction Post-Reduction Neuro Exam: intact Post-Reduction Vascular Exam: intact Post Reduction X-Ray Obtained: Yes Post Reduction X-Ray Results: reduced Additional Comments: Applied shoulder immobilizer following reduction. Medical Decision Making - Medical Decision Making Was pt. sent in by a medical professional or institution (, PA, PIT STEWARD, urgent care, hospital, or [facility]...) When possible be specific @ -No Did you speak to anyone other than the patient for history (EMS, parent, family, police, friend...)? What history was obtained from this source @ -No Did you review nursing and triage notes (agree or disagree)? Why? @ -I reviewed and agree with nursing and triage notes Were old charts reviewed (outside hosp., previous admission, EMS record, old EKG, old radiological studies, urgent care reports/EKG's, [facility] records)? Report findings @ -No old charts were reviewed Differential Diagnosis (chest pain, altered mental status, abdominal pain women, abdominal pain men, vaginal bleeding, weakness, fever, dyspnea, syncope, headache, dizziness, GI bleed, back pain, seizure, CVA, palpatations, mental health, musculoskeletal)? @ -Differential Musculoskeletal Muscular strain, contusion, ligament sprain, fracture, arthritis, septic arthritis, bursitis, cellulitis, dislocation, muscle spasm, nerve compression, DVT, arterial occlusion, herpes zoster, electrolyte abnormality, tumor.... This is not meant to be in all inclusive list EKG interpreted by me (3pts min.). @ -None done X-rays interpreted by me (1pt min.). @ -Right shoulder x-ray reveals a anterior dislocation of the right shoulder. Postreduction x-ray reveals satisfactory reduction. CT interpreted by me (1pt min.). @ -None done U/S interpreted by me (1pt. min.). @ -None done What testing was considered but not performed or refused? (CT, X-rays, U/S, labs)? Why? @ -None What meds were considered but not given or refused? Why? @ -None Did you discuss the management of the patient with other professionals (professionals i.e. , PA, PIT STEWARD, lab, RT, psych nurse, rn social services, housekeeper/laundry assistant, teacher, corporate security officer, case picker)? Give summary @ -No Was smoking cessation discussed for >3mins.? @ -No Was critical care preformed (if so, how long)? @ -No Were there social determinants of health that impacted care today? How? (Homelessness, low income, unemployed, alcoholism, drug addiction, transportation, low edu. Level, literacy, decrease access to med. care, alf, rehab)? @ -No Was there de-escalation of care discussed even if they declined (Discuss DNR or withdrawal of care, Hospice)? DNR status @ -No What co-morbidities impacted this encounter? (DM, HTN, Smoking, COPD, CAD, Cancer, CVA, ARF, Chemo, Hep., AIDS, mental health diagnosis, sleep apnea, morbid obesity)? @ -Recurrent right shoulder dislocations, alcohol intoxication Was patient admitted / discharged? Hospital course, mention meds given and route, prescriptions, significant lab abnormalities, going to OR and other pertinent info. @ -Based on the patient's presentation and physical exam, it appears that he dislocated his right shoulder. X-ray does support this. He is acutely intoxicated with alcohol, and he has had recurrent dislocations of the same shoulder. I discussed with the patient, and I do not believe he requires procedural sedation for this reduction. We will administer IV fluids, IV Dilaudid, as well as a joint injection of 5 mL of 2% lidocaine. He was in agreement with this plan. Vital signs within acceptable limits. Following analgesia medications, reduction was attempted and successful. Patient did not receive procedural sedation. Postreduction x-ray revealed satisfactory reduction. Patient placed in a shoulder immobilizer and discharged home. He only has an orthopedic surgeon that he can follow-up with. His no other acute complaints at this time. Strict return precautions discussed. Discharged in the care of his family member who is at bedside. Family member is sober. Following reduction, patient is neurovascularly intact in the right upper extremity. I instructed the patient to follow up with their PCP in the next 1-3 days. I explained that the patient should return to the emergency department if they experience any worsening symptoms. Strict return precautions were discussed with the patient. The patient expressed understanding of these instructions. I a nswered all questions that the patient had. The patient was discharged home in good condition with their prescriptions and follow up information. Undiagnosed new problem with uncertain prognosis? @ -No Drug Therapy requiring intensive monitoring for toxicity (Heparin, Nitro, Insulin, Cardizem)? @ -No Were any procedures done? @ -No Diagnosis/symptom? @ -Right shoulder dislocation, recurrent. Right shoulder reduction. Acute, or Chronic, or Acute on Chronic? @ -Acute on chronic Uncomplicated (without systemic symptoms) or Complicated (systemic symptoms)? @ -Uncomplicated Side effects of treatment? @ -No Exacerbation, Progression, or Severe Exacerbation? @ -No Poses a threat to life or bodily function? How? (Chest pain, [place], OR, pneumonia, PE, COPD, DKA, ARF, appy, cholecystitis, CVA, Diverticulitis, Homicidal, Suicidal, threat to staff... and all critical care pts) @ -No Diagnosis/symptom? @ -Alcohol intoxication Acute, or Chronic, or Acute on Chronic? @ -Acute on chronic Uncomplicated (without systemic symptoms) or Complicated (systemic symptoms)? @ -Uncomplicated Side effects of treatment? @ -none Exacerbation, Progression, or Severe Exacerbation] @ -no Poses a threat to life or bodily function? @ -no Disposition Clinical Impression: Recurrent dislocation, right shoulder, Alcohol intoxication Disposition: HOME SELF-CARE Condition: Good Instructions (If sedation given, give patient instructions): Shoulder Dislocation (ED) Is patient prescribed a controlled substance at d/c from ED?: No Referrals: Ranulfo Puente MD [Primary Care Provider] - 1-2 days Time of Disposition: 03:29
--- NOTE | 2022-11-24 05:51 | XR ---
EXAMINATION TYPE: XR shoulder limited RT DATE OF EXAM: 11/24/2022 CLINICAL HISTORY: Pain TECHNIQUE: 2 views of the right shoulder are attempted. COMPARISON: Right shoulder x-ray July 09, 2022. FINDINGS: There is inferior medial positioning of the humeral head relative to the osseous glenoid. N o acute fracture clearly seen. Acromioclavicular joint is preserved. Visualized ribs are intact. IMPRESSION: Findings consistent with anterior glenohumeral joint shoulder dislocation are present.
--- NOTE | 2022-11-24 05:52 | XR ---
EXAMINATION TYPE: XR shoulder limited RT DATE OF EXAM: 11/24/2022 CLINICAL HISTORY: Post shoulder reduction TECHNIQUE: One view of the right shoulder is obtained. COMPARISON: Right shoulder x-ray earlier today. FINDINGS: There is improved positioning of the humeral head relative to osseous glenoid on frontal p rojection after interval reduction. No new fracture is seen. IMPRESSION: Successful interval reduction of anterior glenohumeral joint dislocation.
== END 2022-11-24 03:36 | disposition home or self-care (01) ==
LOC: EC 02:20
DX: M24.411 Recurrent dislocation, right shoulder (principal); F10.129 Alcohol abuse with intoxication, unspecified; F17.200 Nicotine dependence, unspecified, uncomplicated; Z88.8 Allergy status to other drugs, medicaments and biological substances
CPT/HCPCS: 73020; 99283; 96374; 96361; 23650; J2001; J1170

== ENCOUNTER 2023-07-22 14:02 | Emergency (ER) | payer OTHER ==
--- NOTE | 2023-07-22 14:25 | ED ---
General Adult HPI - General Chief complaint: Extremity Injury, Upper Stated complaint: R shoulder pain Time Seen by Provider: 07/22/23 14:13 Source: patient Mode of arrival: ambulatory Limitations: no limitations - History of Present Illness Initial comments: Dictation was produced using [employer] dictation software. please excuse any grammatical, word or spelling errors. Chief Complaint: 53-year-old male presents with right shoulder dislocation History of Present Illness: Patient 53-year-old male presents emergency department with right shoulder dislocation. This is his 10th time dislocating his right shoulder. Patient states that no one has ever had any luck with trying to reduce his shoulder without any sedation. He fell on outstretched jameson d after tripping. The ROS documented in this emergency department record has been reviewed and confirmed by me. Those systems with pertinent positive or negative responses have been documented in the HPI. All other systems are other negative and/or noncontributory. - Related Data Home Medications Medication Instructions Recorded Confirmed HYDROcodone/APAP 7.5-325MG [[place] 1 tab PO TID PRN 08/06/15 07/22/23 7.5-325] ALPRAZolam [Xanax] 2 mg PO QID PRN 07/22/23 07/22/23 Linaclotide [Linzess] 145 mcg PO DAILY PRN 07/22/23 07/22/23 Naloxone HCl [Narcan] 4 mg NASAL DIRECTED PRN 07/22/23 07/22/23 Allergies Allergy/AdvReac Type Severity Reaction Status Date / Time haloperidol Allergy Unknown Verified 07/22/23 15:04 Review of Systems ROS Statement: Those systems with pertinent positive or pertinent negative responses have been documented in the HPI. ROS Other: All systems not noted in ROS Statement are negative. Past Medical History Past Medical History: GERD/Reflux Additional Past Medical History / Comment(s): back pain, tourettes, shoulder injury, right shoulder dislocation x 8 History of Any Multi-Drug Resistant Organisms: None Reported Past Surgical History: Orthopedic Surgery Additional Past Surgical History / Comment(s): right meniscus, right eye. Past Anesthesia/Blood Transfusion Reactions: No Reported Reaction Past Psychological History: Anxiety, Schizophrenia Smoking Status: Current every day smoker Past Alcohol Use History: Abuse, Daily, Heavy Past Drug Use History: None Reported General Exam - General Exam Comments Initial Comments: General: Well-appearing, nontoxic, no acute distress. Head: Normocephalic, atraumatic Eyes: PERRLA, EOMI ENT: Airway patent Chest: Nonlabored breathing Skin: No visual rash, normal skin tone Neuro: Alert and oriented 3 Musculoskeletal: No gross abnormalities Right shoulder: Deep sulcus sign at the right shoulder, neurovascularly intact to the distal extremity Limitations: no limitations Course Vital Signs 07/22/23 07/22/23 07/22/23 14:06 14:41 15:05 Temperature 97.4 F L Pulse Rate 94 102 H 93 Respiratory 18 18 18 Rate Blood Pressure 117/73 101/78 98/84 O2 Sat by Pulse 96 95 95 Oximetry 07/22/23 07/22/23 07/22/23 15:10 15:15 15:20 Temperature Pulse Rate 89 86 99 Respiratory 22 22 24 Rate Blood Pressure 97/72 114/73 99/62 O2 Sat by Pulse 95 99 99 Oximetry 07/22/23 07/22/23 07/22/23 15:25 15:26 15:31 Temperature Pulse Rate 78 83 87 Respiratory 22 20 18 Rate Blood Pressure 112/90 119/94 124/95 O2 Sat by Pulse 99 99 98 Oximetry 07/22/23 15:40 Temperature Pulse Rate 92 Respiratory 18 Rate Blood Pressure 120/91 O2 Sat by Pulse 99 Oximetry Procedures - Orthopedic Joint Reduction Joint #1 Consent Obtained: verbal consent, written consent Side: right Joint Reduction Location: shoulder Analgesia: procedural sedation Shoulder Technique Used (if applicable): other Technique Used: direct manipulation Post-Reduction Neuro Exam: intact Post-Reduction Vascular Exam: intact Post Reduction X-Ray Obtained: Yes Post Reduction X-Ray Results: reduced Splint Applied: Yes Patient Tolerated Procedure: well - Procedural Sedation *Procedural Sedation Start Time: 15:05 *Procedural Sedation Stop Time: 15:26 *Risks,benefits, and alternative therapies discussed?: Yes *Patient indicates understanding of risk/benefit discussion?: Yes *Indications: fracture/dislocation reduction *Previous Adverse Reaction to Anesthesia/Sedation?: No *ASA Class: II *Mallampati Airway Score: 2 Preparation: monitoring coordinator applied, pulse oximeter, capnometry used, suppl emental O2 applied, reversal agents at bedside, suction/airway equipment at bedside, IV secured IV Propofol Dose (mgs): 100 Reversal Agents Used: Naloxone Complications: hypoventilation Interventions: oxygen applied, airway repositioned, assist by BVM Patient Tolerated Procedure: well Medical Decision Making - Medical Decision Making Was pt. sent in by a medical professional or institution ([facility], [facility], urgent care, hospital, or detention...) When possible be specific @ -No Did you speak to anyone other than the patient for history (EMS, parent, family, police, friend...)? What history was obtained from this source @ -No Did you review nursing and triage notes (agree or disagree)? Why? @ -I reviewed and agree with nursing and triage notes Were old charts reviewed (outside hosp., previous admission, EMS record, old EKG, old radiological studies, urgent care reports/EKG's, detention records)? Report findings @ -No old charts were reviewed Differential Diagnosis (chest pain, altered mental status, abdominal pain women, abdominal pain men, vaginal bleeding, musculoskeletal, weakness, fever, dyspnea, syncope, headache, dizziness, GI bleed, back pain, seizure, CVA, palpatations, mental health)? @ -Not applicable EKG interpreted by me (3pts min.). @ -None done X-rays interpreted by me (1pt min.). @ -Right shoulder x-ray shows anterior inferior right shoulder dislocation CT interpreted by me (1pt min.). @ -None done U/S interpreted by me (1pt. min.). @ -None done What testing was considered but not performed or refused? (CT, X-rays, U/S, labs)? Why? @ -None What meds were considered but not given or refused? Why? @ -None Did you discuss the management of the patient with other professionals (professionals i.e. [facility], [facility], lab, RT, psych nurse, bilingual social worker, precision aircraft systems assembler, teacher, complaint investigations officer, rn case manager hospice)? Give summary @ -No Was smoking cessation discussed for >3mins.? @ -No Was critical care preformed (if so, how long)? @ -No Were there social determinants of health that impacted care today? How? (Homelessness, low income, unemployed, alcoholism, drug addiction, transportation, low edu. Level, literacy, decrease access to med. care, longterm, rehab)? @ -No Was there de-escalation of care discussed even if they declined (Discuss DNR or withdrawal of care, Hospice)? DNR status @ -No What co-morbidities impacted this encounter? (DM, HTN, Smoking, COPD, CAD, Cancer, CVA, ARF, Chemo, Hep., AIDS, mental health diagnosis, sleep apnea, morbid obesity)? @ -None Was patient admitted / discharged? Hospital course, mention meds given and route, prescriptions, significant lab abnormalities, going to OR and other pertinent info. @ -53-year-old male presents to the emergency department for right shoulder dislocation. Vital signs upon arrival are within acceptable limits. Attempt was made to reduce shoulder without any procedural sedation. Attempts were unsuccessful. Patient given sedation using propofol. Patient became apneic after propofol administration. He needed bag valve ventilation for approximately 10 minutes. Tolerated procedure well. He is awake alert and oriented at the bedside. Patient observed emergency department post reduction in stable medical condition. Reduction x-ray shows successful reduction. Right upper extremity shoulder sling applied. Advised patient to follow-up with orthopedic surgery. Undiagnosed new problem with uncertain prognosis? @ -No Drug Therapy requiring intensive monitoring for toxicity (Heparin, Nitro, Insulin, Cardizem)? @ -No Were any procedures done? @ -See above Diagnosis/symptom? Acute, or Chronic, or Acute on Chronic? Uncomplicated (without systemic symptoms) or Complicated (systemic symptoms)? @ -Right shoulder dislocation Side effects of treatment? @ -No Exacerbation, Progression, or Severe Exacerbation? @ -No Poses a threat to life or bodily function? How? (Chest pain, [place], [place], pneumonia, PE, COPD, DKA, ARF, appy, cholecystitis, CVA, Diverticulitis, Homicidal, Suicidal, threat to staff... and all critical care pts) @ -yes Disposition Clinical Impression: Shoulder dislocation Disposition: HOME SELF-CARE Condition: Good Instructions (If sedation given, give patient instructions): Shoulder Dislocation (ED) Is patient prescribed a controlled substance at d/c from ED?: No Referrals: Gurdeep Mitchell DO [Doctor of Osteopathic Medicine] - 1-2 days Time of Disposition: 15:37
[2023-07-22] MEDS: HYDROmorphone 0.5 MG/0.5 ML SYRINGE IVP STA (14:35)
[2023-07-22 14:43] VITALS: TEMP 97.4
[2023-07-22] MEDS: SODIUM CHLORIDE 0.9% 1,000 ML IV STA (15:00)
[2023-07-22] MEDS: HYDROmorphone 1 MG/ML 1 ML SYRINGE IVP STA (15:03)
--- NOTE | 2023-07-22 15:03 | XR ---
EXAMINATION TYPE: XR shoulder complete RT DATE OF EXAM: 07/22/2023 CLINICAL HISTORY: pain TECHNIQUE: Three views of the right shoulder are obtained. COMPARISON: None FINDINGS: Anterior shoulder dislocation noted. No displaced fracture appreciated at this time. The ac romioclavicular and glenohumeral joint spaces appear within normal limits. The visualized ribs are i ntact and unremarkable. IMPRESSION: 1. Anterior shoulder dislocation noted. No displaced fracture appreciated at this time. ICD 10 NO FRACTURE, INITIAL EVALUATION
[2023-07-22] MEDS: PROPOFOL 10 MG/ML 20 ML VIAL IV ONE (15:07)
[2023-07-22] MEDS: NALOXONE 0.4 MG/ML 1 ML VIAL IVP STA (15:18)
--- NOTE | 2023-07-22 15:54 | XR ---
Right shoulder HISTORY: Status post reduction COMPARISON: 07/22/2023 prereduction shoulder TECHNIQUE: Single AP view the shoulder was obtained. FINDINGS: There is no fracture or dislocation. There is satisfactory post reduction of the glenohumeral joint. The AC joint is intact. IMPRESSION: Satisfactory postreduction of the previous anterior-inferior dislocation of the right glenoid joint. No evidence of acute fracture.
[2023-07-22 16:53] VITALS: BP 117/99; PULSE 85; RESP 16
== END 2023-07-22 16:31 | disposition home or self-care (01) ==
LOC: EC 14:02
DX: S43.004A Unspecified dislocation of right shoulder joint, initial encounter (principal); F17.200 Nicotine dependence, unspecified, uncomplicated; Z88.8 Allergy status to other drugs, medicaments and biological substances; W01.0XXA Fall on same level from slipping, tripping and stumbling without subsequent striking against object, initial encounter
CPT/HCPCS: 73020; 73030; 99283; 96374; 96375; 96361; 23650; 99152; J2310; J1170 ×2; J2704

== ENCOUNTER 2024-03-02 06:44 | Emergency (ER) | payer OTHER ==
[2024-03-02 06:51] VITALS: TEMP 97.8
--- NOTE | 2024-03-02 06:57 | ED ---
General Adult HPI - General Stated complaint: Arm injury Time Seen by Provider: 03/02/24 06:46 Source: patient, EMS, RN notes reviewed Mode of arrival: EMS Limitations: no limitations - History of Present Illness Initial comments: 53-year-old male presents emergency department via EMS due to complaint of right shoulder pain. Patient has recurrent right shoulder dislocations. Patient states he rolled over in bed and had discomfort. Patient has obvious deformity, dislocation of the right shoulder. Patient denies any falls no other complaints. - Related Data Home Medications Medication Instructions Recorded Confirmed HYDROcodone/APAP 7.5-325MG [[place] 1 tab PO TID PRN 08/06/15 07/22/23 7.5-325] ALPRAZolam [Xanax] 2 mg PO QID PRN 07/22/23 07/22/23 Linaclotide [Linzess] 145 mcg PO DAILY PRN 07/22/23 07/22/23 Naloxone HCl [Narcan] 4 mg NASAL DIRECTED PRN 07/22/23 07/22/23 Allergies Allergy/AdvReac Type Severity Reaction Status Date / Time haloperidol Allergy Unknown Verified 03/02/24 06:51 Review of Systems ROS Statement: Those systems with pertinent positive or pertinent negative responses have been documented in the HPI. ROS Other: All systems not noted in ROS Statement are negative. Past Medical History Past Medical History: GERD/Reflux Additional Past Medical History / Comment(s): back pain, tourettes, shoulder injury, right shoulder dislocation x 8 History of Any Multi-Drug Resistant Organisms: None Reported Past Surgical History: Orthopedic Surgery Additional Past Surgical History / Comment(s): right meniscus, right eye. Past Anesthesia/Blood Transfusion Reactions: No Reported Reaction Past Psychological History: Anxiety, Schizophrenia Smoking Status: Current every day smoker Past Alcohol Use History: Abuse, Daily, Heavy Past Drug Use History: None Reported General Exam Limitations: no limitations General appearance: alert, in no apparent distress Head exam: Present: atraumatic, normocephalic, normal inspection Respiratory exam: Present: normal lung sounds bilaterally. Absent: respiratory distress, wheezes, rales, rhonchi, stridor Cardiovascular Exam: Present: regular rate, normal rhythm, normal heart sounds. Absent: systolic murmur, diastolic murmur, rubs, gallop, clicks Extremities exam: Present: other (Right shoulder obvious dislocation, limited range of motion neurovascular intact) Course Vital Signs 03/02/24 06:45 Temperature 97.8 F Pulse Rate 84 Respiratory 18 Rate Blood Pressure 140/92 O2 Sat by Pulse 98 Oximetry Procedures - Orthopedic Joint Reduction Joint #1 Consent Obtained: verbal consent Side: right Joint Reduction Location: shoulder Analgesia: none Shoulder Technique Used (if applicable): traction/counter-traction, scapula manipulation Post-Reduction Neuro Exam: intact Post-Reduction Vascular Exam: intact Post Reduction X-Ray Obtained: Yes Post Reduction X-Ray Results: reduced Splint Applied: Yes Patient Tolerated Procedure: well, no complications Medical Decision Making - Medical Decision Making Was pt. sent in by a medical professional or institution ([facility], [facility] [employer], urgent care, hospital, or fci...) When possible be specific @ -No Did you speak to anyone other than the patient for history (EMS, parent, family, police, friend...)? What history was obtained from this source @ -No Did you review nursing and triage notes (agree or disagree)? Why? @ -I reviewed and agree with nursing and triage notes Were old charts reviewed (outside hosp., previous admission, EMS record, old EKG, old radiological studies, urgent care reports/EKG's, fci records)? Report findings @ -No old charts were reviewed Differential Diagnosis (chest pain, altered mental status, abdominal pain women, abdominal pain men, vaginal bleeding, weakness, fever, dyspnea, syncope, headache, dizziness, GI bleed, back pain, seizure, CVA, palpatations, mental health, musculoskeletal)? @ -Shoulder pain, shoulder dislocation EKG interpreted by me (3pts min.). @ -None X-rays interpreted by me (1pt min.). @ -Right shoulder shows evidence of reduced right shoulder anatomical position CT interpreted by me (1pt min.). @ -None done U/S interpreted by me (1pt. min.). @ -None done What testing was considered but not performed or refused? (CT, X-rays, U/S, labs)? Why? @ -None What meds were considered but not given or refused? Why? @ -None Did you discuss the management of the patient with other professionals (professionals i.e. [facility], [facility] [employer], lab, RT, psych nurse, social research assistant, flame hardening machine setter, teacher, chief strategy officer, binder caser)? Give summary @ -No Was smoking cessation discussed for >3mins.? @ -No Was critical care preformed (if so, how long)? @ -No Were there social determinants of health that impacted care today? How? (Homelessness, low income, unemployed, alcoholism, drug addiction, transportation, low edu. Level, literacy, decrease access to med. care, snf, rehab)? @ -No Was there de-escalation of care discussed even if they declined (Discuss DNR or withdrawal of care, Hospice)? DNR status @ -No What co-morbidities impacted this encounter? (DM, HTN, Smoking, COPD, CAD, Cancer, CVA, ARF, Chemo, Hep., AIDS, mental health diagnosis, sleep apnea, morbid obesity)? @ -None Was patient admitted / discharged? Hospital course, mention meds given and route, prescriptions, significant lab abnormalities, going to OR and other pertinent info. @ -Discharge patient was placed in a sling after shoulder reduction post x-rays were obtained. Undiagnosed new problem with uncertain prognosis? @ -No Drug Therapy requiring intensive monitoring for toxicity (Heparin, Nitro, Insu danuta, Cardizem)? @ -No Were any procedures done? @ -Shoulder adduction Diagnosis/symptom? @ -[Right shoulder dislocation Acute, or Chronic, or Acute on Chronic? @ -Acute Uncomplicated (without systemic symptoms) or Complicated (systemic symptoms)? @ -uncomplicated Side effects of treatment? @ -No Exacerbation, Progression, or Severe Exacerbation? @ -No Poses a threat to life or bodily function? How? (Chest pain, [place], [place], pneumonia, PE, COPD, DKA, ARF, appy, cholecystitis, CVA, Diverticulitis, Homicidal, Suicidal, threat to staff... and all critical care pts) @ -No Disposition Clinical Impression: Dislocation of right shoulder joint Disposition: HOME SELF-CARE Condition: Stable Instructions (If sedation given, give patient instructions): Shoulder Dislocation (ED) Additional Instructions: Please return to the Emergency Department if symptoms worsen or any other concerns. Is patient prescribed a controlled substance at d/c from ED?: No Referrals: Ranulfo Puente MD [Primary Care Provider] - 1-2 days Time of Disposition: 07:12
--- NOTE | 2024-03-02 07:26 | XR ---
EXAMINATION TYPE: XR shoulder 2 views RT DATE OF EXAM: 03/02/2024 COMPARISON: 07/22/2023 CLINICAL INDICATION: Male, 53 years old with history of pain; TECHNIQUE: 2 views FINDINGS: There is moderate degenerative change at the AC joint with joint space narrowing, marginal spurring, and some mild overlying soft tissue swelling. Inferior spurring encroaches onto the subacro mial space. No acute fracture, subluxation, dislocation seen. Visualized right hemithorax is clear. IMPRESSION: 1. Moderate AC joint OA. Inferior spurring may contribute to subacromial impingement. 2. Mild overlying soft tissue swelling. Consider acute exacerbation of underlying OA versus a mild anneliese int sprain. 3. Otherwise, no acute osseous abnormality seen. [facility], , 03/02/2024 7:24 AM
[2024-03-02 07:41] VITALS: BP 128/93; PULSE 83; RESP 20
== END 2024-03-02 07:39 | disposition home or self-care (01) ==
LOC: EC 06:44
DX: S43.004A Unspecified dislocation of right shoulder joint, initial encounter (principal); F17.200 Nicotine dependence, unspecified, uncomplicated; Z88.8 Allergy status to other drugs, medicaments and biological substances; W06.XXXA Fall from bed, initial encounter
CPT/HCPCS: 23650; 99283

== ENCOUNTER 2024-07-10 15:21 | Emergency (ER) | payer OTHER ==
[2024-07-10 15:26] VITALS: TEMP 97.9
--- NOTE | 2024-07-10 16:28 | ED ---
Abdominal Pain HPI - General Chief Complaint: Abdominal Pain Stated Complaint: Abd/Rib Pain Time Seen by Provider: 07/10/24 16:24 Source: patient, RN notes reviewed Mode of arrival: ambulatory Limitations: no limitations - History of Present Illness Initial Comments: 54-year-old male presenting for upper quadrant abdominal pain x 1 week. Describes a sharp pain that is intermittent. Pain is worse when he goes from a lying to a sitting position. Denies nausea, vomiting, diarrhea, fevers. States he has never had this pain before. Denies history of abdominal surgeries. Endorses occasional alcohol use on the weekends. Denies chest pain or shortness of breath. Pain is not worse with food. Last meal was breakfast this morning. - Related Data Home Medications Medication Instructions Recorded Confirmed ALPRAZolam [Xanax] 2 mg PO QID PRN 07/22/23 07/10/24 Linaclotide [Linzess] 145 mcg PO DAILY 07/22/23 07/10/24 Naloxone HCl [Narcan] 4 mg NASAL DIRECTED PRN 07/22/23 07/10/24 oxyCODONE-APAP 7.5-325MG [Percocet 1 tab PO TID PRN 07/10/24 07/10/24 7.5-325 mg] Previous Rx's Medication Instructions Recorded Pantoprazole [Protonix] 40 mg PO DAILY 14 Days #14 tab 07/10/24 Allergies Allergy/AdvReac Type Severity Reaction Status Date / Time haloperidol Allergy Unknown Verified 07/10/24 17:06 Review of Systems ROS Statement: Those systems with pertinent positive or pertinent negative responses have been documented in the HPI. ROS Other: All systems not noted in ROS Statement are negative. Past Medical History Past Medical History: GERD/Reflux Additional Past Medical History / Comment(s): back pain, tourettes, shoulder injury, right shoulder dislocation x 8 History of Any Multi-Drug Resistant Organisms: None Reported Past Surgical History: Orthopedic Surgery Additional Past Surgical History / Comment(s): right meniscus, right eye. Past Anesthesia/Blood Transfusion Reactions: No Reported Reaction Past Psychological History: Anxiety, Schizophrenia Smoking Status: Current every day smoker Past Alcohol Use History: Abuse, Daily, Heavy Past Drug Use History: None Reported General Exam Limitations: no limitations General appearance: alert, in no apparent distress Head exam: Present: atraumatic, normocephalic, normal inspection Eye exam: Present: normal appearance, PERRL, EOMI. Absent: scleral icterus, conjunctival injection, periorbital swelling ENT exam: Present: normal exam, mucous membranes moist Neck exam: Present: normal inspection. Absent: tenderness, meningismus, lymphadenopathy Respiratory exam: Present: normal lung sounds bilaterally. Absent: respiratory distress, wheezes, rales, rhonchi, stridor Cardiovascular Exam: Present: regular rate, normal rhythm, normal heart sounds. Absent: systolic murmur, diastolic murmur, rubs, gallop, clicks GI/Abdominal exam: Present: soft, normal bowel sounds. Absent: distended, tend erness, guarding, rebound, rigid Neurological exam: Present: alert, oriented X3 Psychiatric exam: Present: normal affect, normal mood Skin exam: Present: warm, dry, intact, normal color. Absent: rash Course Vital Signs 07/10/24 07/10/24 15:23 17:56 Temperature 97.9 F Pulse Rate 92 81 Respiratory 20 18 Rate Blood Pressure 146/97 137/95 O2 Sat by Pulse 98 98 Oximetry Medical Decision Making - Medical Decision Making Was pt. sent in by a medical professional or institution (, PA, MAINTENANCE MAN, urgent care, hospital, or jail...) When possible be specific @ -No Did you speak to anyone other than the patient for history (EMS, parent, family, police, friend...)? What history was obtained from this source @ -No Did you review nursing and triage notes (agree or disagree)? Why? @ -I reviewed and agree with nursing and triage notes Were old charts reviewed (outside hosp., previous admission, EMS record, old EKG, old radiological studies, urgent care reports/EKG's, jail records)? Report findings @ -No old charts were reviewed Differential Diagnosis (chest pain, altered mental status, abdominal pain women, abdominal pain men, vaginal bleeding, weakness, fever, dyspnea, syncope, heada kelli, dizziness, GI bleed, back pain, seizure, CVA, palpatations, mental health, musculoskeletal)? @ -Differential Abdominal Pain Men: Appendicitis, cholecystitis, diverticulosis, ischemic bowel, pancreatitis, hepatitis, UTI, gastroenteritis, AAA, incarcerated hernia, bowel obstruction, constipation, inflammatory bowel, hepatitis, peptic ulcer disease, splenic infarction, perforated viscus, testicular torsion, this is not meant to be an all-inclusive list EKG interpreted by me (3pts min.). @ -None X-rays interpreted by me (1pt min.). @ -None done CT interpreted by me (1pt min.). @ -None done U/S interpreted by me (1pt. min.). @ -None done What testing was considered but not performed or refused? (CT, X-rays, U/S, labs)? Why? @ -None What meds were considered but not given or refused? Why? @ -None Did you discuss the management of the patient with other professionals (professionals i.e. , PA, MAINTENANCE MAN, lab, RT, psych nurse, social media marketer, lockstitch front maker, teacher, front desk officer, nurse case manager)? Give summary @ -No Was smoking cessation discussed for >3mins.? @ -No Was critical care preformed (if so, how long)? @ -No Were there social determinants of health that impacted care today? How? (Homele ssness, low income, unemployed, alcoholism, drug addiction, transportation, low edu. Level, literacy, decrease access to med. care, group home, rehab)? @ -No Was there de-escalation of care discussed even if they declined (Discuss DNR or withdrawal of care, Hospice)? DNR status @ -No What co-morbidities impacted this encounter? (DM, HTN, Smoking, COPD, CAD, Cancer, CVA, ARF, Chemo, Hep., AIDS, mental health diagnosis, sleep apnea, morbid obesity)? @ -None Was patient admitted / discharged? Hospital course, mention meds given and route, prescriptions, significant lab abnormalities, going to OR and other pertinent info. @ -54-year-old male presenting for left upper quadrant abdominal pain x 1 week. Vital signs within acceptable limits. Patient is well-appearing, no acute distress. Abdomen is soft and nonsurgical. Patient is provided with Protonix and GI cocktail. Lab work remarkable for elevated liver enzymes AST 78, ALT 108. White blood cell count normal at 6, D-dimer negative, lactic normal, lipase normal. Liver enzymes are elevated. Upon reevaluation, patient reports improvement of symptoms. Offered further testing such as ultrasound gallbladder however patient states he needs to leave soon as he is biking home and he wants to leave before sunset. Appropriate return precautions and follow-up care discussed. Provided with outpatient prescription of omeprazole. Case was di scussed with my ED attending Dr. Calderón. Undiagnosed new problem with uncertain prognosis? @ -No Drug Therapy requiring intensive monitoring for toxicity (Heparin, Nitro, Insulin, Cardizem)? @ -No Were any procedures done? @ -No Diagnosis/symptom? @ -Left upper quadrant abdominal pain, gastritis Acute, or Chronic, or Acute on Chronic? @ -Acute Uncomplicated (without systemic symptoms) or Complicated (systemic symptoms)? @ -Uncomplicated Side effects of treatment? @ -No Exacerbation, Progression, or Severe Exacerbation? @ -No Poses a threat to life or bodily function? How? (Chest pain, [place], [place], pneumonia, PE, COPD, DKA, ARF, appy, cholecystitis, CVA, Diverticulitis, Homicidal, Suicidal, threat to staff... and all critical care pts) @ -No - Lab Data Result diagrams: 07/10/24 16:34 07/10/24 16:33 Lab Results 07/10/24 07/10/24 07/10/24 Range/Units 16:33 16:33 16:34 WBC 6.55 (4.50-10.00) 10*3/uL RBC 4.92 (4.40-5.60) 10*6/uL Hgb 16.6 (13.0-17.0) g/dL Hct 46.6 (39.6-50.0) % MCV 94.7 (80.0-97.0) fL MCH 33.7 H (27.0-32.0) pg MCHC 35.6 (32.0-37.0) g/dL Plt Count 236 (140-440) 10*3/uL MPV 8.6 L (9.5-12.2) fL Immature Gran % (Auto) 0.3 % Neutrophils % 66.8 % Lymphocytes % 24.7 % Monocytes % 7.6 % Eosinophils % 0.3 % Basophils % 0.3 % Immature Gran # 0.02 (0.00-0.04) 10*3/uL Neutrophils # 4.37 (1.80-7.70) 10*3/uL Lymphocytes # 1.62 (0.90-5.00) 10*3/uL Monocytes # 0.50 (0.20-1.00) 10*3/uL Eosinophils # 0.02 L (0.04-0.35) 10*3/uL Basophils # 0.02 (0.00-0.10) 10*3/uL D-Dimer (<0.60) mg/L FEU Sodium 140 (137-145) mmol/L Potassium 4.7 (3.5-5.1) mmol/L Chloride 107 (98-107) mmol/L Carbon Dioxide 25 (22-30) mmol/L Anion Gap 8 mmol/L BUN 12 (9-20) mg/dL Creatinine 0.64 L (0.66-1.25) mg/dL Est GFR (CKD-EPI)AfAm >90 (>60 ml/min/1.73 sqM) Est GFR (CKD-EPI)NonAf >90 (>60 ml/min/1.73 sqM) Glucose 97 (74-99) mg/dL Plasma Lactic Acid Mars 0.8 (0.7-2.0) mmol/L Calcium 9.2 (8.4-10.2) mg/dL Total Bilirubin 0.6 (0.2-1.3) mg/dL AST 78 H (17-59) U/L ALT 108 H (4-49) U/L Alkaline Phosphatase 81 (38-126) U/L Total Protein 7.1 (6.3-8.2) g/dL Albumin 4.2 (3.5-5.0) g/dL Lipase 124 (23-300) U/L 07/10/24 Range/Units 16:34 WBC (4.50-10.00) 10*3/uL RBC (4.40-5.60) 10*6/uL Hgb (13.0-17.0) g/dL Hct (39.6-50.0) % MCV (80.0-97.0) fL MCH (27.0-32.0) pg MCHC (32.0-37.0) g/dL Plt Count (140-440) 10*3/uL MPV (9.5-12.2) fL Immature Gran % (Auto) % Neutrophils % % Lymphocytes % % Monocytes % % Eosinophils % % Basophils % % Immature Gran # (0.00-0.04) 10*3/uL Neutrophils # (1.80-7.70) 10*3/uL Lymphocytes # (0.90-5.00) 10*3/uL Monocytes # (0.20-1.00) 10*3/uL Eosinophils # (0.04-0.35) 10*3/uL Basophils # (0.00-0.10) 10*3/uL D-Dimer 0.39 (<0.60) mg/L FEU Sodium (137-145) mmol/L Potassium (3.5-5.1) mmol/L Chloride (98-107) mmol/L Carbon Dioxide (22-30) mmol/L Anion Gap mmol/L BUN (9-20) mg/dL Creatinine (0.66-1.25) mg/dL Est GFR (CKD-EPI)AfAm (>60 ml/min/1.73 sqM) Est GFR (CKD-EPI)NonAf (>60 ml/min/1.73 sqM) Glucose (74-99) mg/dL Plasma Lactic Acid Mars (0.7-2.0) mmol/L Calcium (8.4-10.2) mg/dL Total Bilirubin (0.2-1.3) mg/dL AST (17-59) U/L ALT (4-49) U/L Alkaline Phosphatase (38-126) U/L Total Protein (6.3-8.2) g/dL Albumin (3.5-5.0) g/dL Lipase (23-300) U/L Disposition Clinical Impression: Gastritis Disposition: HOME SELF-CARE Condition: Stable Instructions (If sedation given, give patient instructions): Gastritis (ED) Additional Instructions: Take Protonix as directed. Follow-up with your PCP for further evaluation. Please return to the Emergency Department if symptoms worsen or any other concerns. Prescriptions: Pantoprazole [Protonix] 40 mg PO DAILY 14 Days #14 tab Is patient prescribed a controlled substance at d/c from ED?: No Referrals: Ranulfo Puente MD [Primary Care Provider] - 1-2 days Time of Disposition: 18:16
[2024-07-10 16:51] LABS: Basophils # (A) 0.02 10*3/uL (0.00-0.10); Basophils % (A) 0.3 %; Eosinophils # (A) 0.02 10*3/uL (0.04-0.35); Eosinophils % (A) 0.3 %; HCT 46.6 % (39.6-50.0); HGB 16.6 g/dL (13.0-17.0); Lymphocytes # (A) 1.62 10*3/uL (0.90-5.00); Lymphocytes % (A) 24.7 %; MCH 33.7 pg (27.0-32.0); MCHC 35.6 g/dL (32.0-37.0); MCV 94.7 fL (80.0-97.0); Mean Platelet Volume 8.6 fL (9.5-12.2); Monocytes % (A) 7.6 %; Neutrophils # (A) 4.37 10*3/uL (1.80-7.70); Neutrophils % (A) 66.8 %; Platelet Count 236 10*3/uL (140-440); RBC 4.92 10*6/uL (4.40-5.60); RDW 13.2 % (11.5-14.5); WBC 6.55 10*3/uL (4.50-10.00)
[2024-07-10] MEDS: MAG HYDROX/AL HYDROX/SIMETH 30 ML CUP PO STA (17:00)
[2024-07-10] MEDS: LIDOCAINE VISCOUS 2% 15 ML CUP PO ONE (17:00)
[2024-07-10] MEDS: PANTOPRAZOLE 40 MG/10 ML VIAL IVP STA (17:00)
[2024-07-10 17:06] LABS: ALT 108 U/L (4-49); AST 78 U/L (17-59); African American GFR (CKD) >90 (>60 ml/min/1.73 sqM); Albumin 4.2 g/dL (3.5-5.0); Alkaline Phosphatase 81 U/L (38-126); Anion Gap 8 mmol/L; Blood Urea Nitrogen 12 mg/dL (9-20); Calcium 9.2 mg/dL (8.4-10.2); Carbon Dioxide 25 mmol/L (22-30); Chloride 107 mmol/L (98-107); Glucose 97 mg/dL (74-99); Lipase 124 U/L (23-300); Non-African American GFR(CKD) >90 (>60 ml/min/1.73 sqM); Potassium 4.7 mmol/L (3.5-5.1); Sodium 140 mmol/L (137-145); Total Bilirubin 0.6 mg/dL (0.2-1.3); Total Protein 7.1 g/dL (6.3-8.2)
[2024-07-10 17:57] VITALS: RESP 18
[2024-07-10 18:39] VITALS: BP 137/100; PULSE 84
== END 2024-07-10 18:38 | disposition home or self-care (01) ==
LOC: EC 15:21
DX: K29.70 Gastritis, unspecified, without bleeding (principal); F17.200 Nicotine dependence, unspecified, uncomplicated; Z88.8 Allergy status to other drugs, medicaments and biological substances
CPT/HCPCS: 85379; 80053; 83605; 83690; 85025; 99284; 96374; J2470; 36415

== ENCOUNTER 2024-08-09 07:28 | Emergency (ER) | payer OTHER ==
[2024-08-09 07:41] VITALS: RESP 18; TEMP 98.2
[2024-08-09] MEDS: SODIUM CHLORIDE 0.9% 1,000 ML IV ONE (07:48)
[2024-08-09] MEDS: HYDROmorphone 1 MG/ML 1 ML SYRINGE IVP STA ×2 (07:48→08:36)
--- NOTE | 2024-08-09 08:12 | XR ---
EXAMINATION TYPE: XR shoulder limited RT DATE OF EXAM: 08/09/2024 7:56 AM COMPARISON: 04/05/2024 CLINICAL INDICATION: Male, 54 years old with history of fracture vs. dislocation; PHH, pain TECHNIQUE: XR shoulder limited RT; examined in frontal view FINDINGS: The right humeral head is discrete anterior inferiorly. No evidence of fracture on this single view. The lungs appear unremarkable. Is minimal degeneration changes of the shoulder joints. IMPRESSION: Suspected Anterior inferior shoulder dislocation. No fracture identified on this single view. [facility], , 08/09/2024 8:10 AM
[2024-08-09] MEDS: KETAMINE 10 MG/ML 20 ML VIAL IV ONE (09:08)
[2024-08-09] MEDS: PROPOFOL 10 MG/ML 20 ML VIAL IV ONE (09:08)
--- NOTE | 2024-08-09 09:36 | XR ---
EXAMINATION TYPE: XR shoulder limited RT DATE OF EXAM: 08/09/2024 9:29 AM COMPARISON: Earlier today CLINICAL INDICATION: Male, 54 years old with history of post reduction; PHH, pain TECHNIQUE: Single AP view post reduction FINDINGS AND IMPRESSION: Moderate degenerative change AC joint. Interval satisfactory reduction of the glenohumeral joint. Demarco itada single AP view. [facility], Workstation: [facility], 08/09/2024 9:34 AM
--- NOTE | 2024-08-09 09:47 | ED ---
General Adult HPI - General Chief complaint: Extremity Injury, Upper Stated complaint: R shoulder injury Time Seen by Provider: 08/09/24 07:30 Source: patient, EMS, RN notes reviewed, old records reviewed Mode of arrival: EMS Limitations: no limitations - History of Present Illness Initial comments: 54-year-old male who presents emergency department complaining of right shoulder dislocation. Has a history of recurrent dislocations of the right shoulder. Has a history of alcohol abuse as well. Denies any falls or injuring his head. Has no other acute complaints at this time. Denies any trauma and states he was sleeping and rolled over wrong which caused his shoulder to dislocate. Presents for further evaluation this time. Has not recently followed up with an orthopedic surgeon. - Related Data Home Medications Medication Instructions Recorded Confirmed ALPRAZolam [Xanax] 2 mg PO QID PRN 07/22/23 07/10/24 Linaclotide [Linzess] 145 mcg PO DAILY 07/22/23 07/10/24 Naloxone HCl [Narcan] 4 mg NASAL DIRECTED PRN 07/22/23 07/10/24 oxyCODONE-APAP 7.5-325MG [Percocet 1 tab PO TID PRN 07/10/24 07/10/24 7.5-325 mg] Previous Rx's Medication Instructions Recorded Pantoprazole [Protonix] 40 mg PO DAILY 14 Days #14 tab 07/10/24 Allergies Allergy/AdvReac Type Severity Reaction Status Date / Time haloperidol Allergy Unknown Verified 07/10/24 17:06 Review of Systems ROS Statement: Those systems with pertinent positive or pertinent negative responses have been documented in the HPI. Review of Systems: CONST: Denies fever EYES: Denies blurry vision ENT: Denies nasal congestion C/V: Denies Chest pain RESP: Denies shortness of breath GI: Denies abdominal pain : Denies dysuria SKIN: Denies rash. MSK: Endorses right shoulder pain NEURO: Denies headache ROS Other: All systems not noted in ROS Statement are negative. Past Medical History Past Medical History: GERD/Reflux Additional Past Medical History / Comment(s): back pain, tourettes, shoulder injury, right shoulder dislocation x 8 History of Any Multi-Drug Resistant Organisms: None Reported Past Surgical History: Orthopedic Surgery Additional Past Surgical History / Comment(s): right meniscus, right eye. Past Anesthesia/Blood Transfusion Reactions: No Reported Reaction Past Psychological History: Anxiety, Schizophrenia Smoking Status: Current every day smoker Past Alcohol Use History: Abuse, Daily, Heavy Past Drug Use History: None Reported General Exam - General Exam Comments Initial Comments: General: Appears in mild distress secondary to pain. HEAD: Normal with no signs of head trauma. EYES: EOMI ENT: Hearing grossly intact, normal oropharynx. RESPIRATORY: Clear breath sounds bilaterally. No wheezes, rales, or rhonchi. C/V: Regular rate and rhythm. S1 and S2 auscultated, peripheral pulses 2+ and intact throughout ABD: Abd is soft, nontender, nondistended EXT: Obvious deformity of the right shoulder appears dislocated. Reduced range of motion of the right shoulder. No obvious other injuries to the extremities. No midline cervical, thoracic, lumbar spine tenderness to palpation. Neurovascular exam within acceptable limits in the right upper extremity as well as throughout. SKIN: No rashes or lesions observed on exposed skin. NEURO: Oriented x 4. No focal deficits. Limitations: no limitations Course Vital Signs 08/09/24 08/09/24 08/09/24 07:33 08:50 09:08 Temperature 98.2 F Pulse Rate 100 101 H 99 Respiratory 18 18 18 Rate Blood Pressure 128/96 141/86 133/89 O2 Sat by Pulse 96 94 L 99 Oximetry 08/09/24 08/09/24 08/09/24 09:11 09:12 09:16 Temperature Pulse Rate 92 106 H 98 Respiratory 18 18 18 Rate Blood Pressure 138/90 139/105 131/102 O2 Sat by Pulse 99 99 99 Oximetry 08/09/24 08/09/24 08/09/24 09:21 09:29 09:35 Temperature Pulse Rate 109 H 103 H 107 H Respiratory 18 18 18 Rate Blood Pressure 115/91 127/102 124/89 O2 Sat by Pulse 99 96 Oximetry 08/09/24 10:16 Temperature Pulse Rate 96 Respiratory 18 Rate Blood Pressure 116/78 O2 Sat by Pulse 99 Oximetry Procedures - [place] Protocol (Time Out) Performing Provider: Harshal Perry Nurse: Korin Albert Respiratory Therapist: Saida Sarmiento Patient Identification (2 identifiers required): Chart, Verbal, Arm Band, Name, Birthdate Patient/Legal Radio Despatcher has Confirmed: Identity, Site, Procedure, Consent Site: right shoulder Site Marked: Yes Site Verified With Patient/Guardian: Yes Final Confirmation: Procedure, Site, Patient Position, Confirmed w/Provider - Orthopedic Joint Reduction Joint #1 Consent Obtained: written consent Side: right Joint Reduction Location: shoulder Analgesia: procedural sedation Shoulder Technique Used (if applicable): traction/counter-traction Post-Reduction Neuro Exam: intact Post-Reduction Vascular Exam: intact Post Reduction X-Ray Obtained: Yes Post Reduction X-Ray Results: reduced Patient Tolerated Procedure: well Additional Comments: Placed in a shoulder immobilizer following reduction. - Procedural Sedation *Procedural Sedation Start Time: :09 *Procedural Sedation Stop Time: 09:16 *Risks,benefits, and alternative therapies discussed?: Yes *Patient indicates understanding of risk/benefit discussion?: Yes *Indications: fracture/dislocation reduction *Previous Adverse Reaction to Anesthesia/Sedation?: No *ASA Class: I *Mallampati Airway Score: 1 *Time of Last PO Intake: 20:00 (last night sometime.) Preparation: cardiac cath tech applied, pulse oximeter, capnometry used, supplemental O2 applied, suction/airway equipment at bedside, IV secured Ketamine: IV Ketamine Dose: 40 IV Propofol Dose (mgs): 40 Complications: none Patient Tolerated Procedure: well Medical Decision Making - Medical Decision Making Was pt. sent in by a medical professional or institution (, PA, PATIENT ACCOUNT SPECIALIST, urgent care, hospital, or group home...) When possible be specific @ -No Did you speak to anyone other than the patient for history (EMS, parent, family, police, friend...)? What history was obtained from this source @ -No Did you review nursing and triage notes (agree or disagree)? Why? @ -I reviewed and agree with nursing and triage notes Were old charts reviewed (outside hosp., previous admission, EMS record, old EKG, old radiological studies, urgent care reports/EKG's, group home records)? Report findings @ -Old charts reviewed which shows frequent visits for right shoulder dislocations. Last of which was March of this year. Differential Diagnosis (chest pain, altered mental status, abdominal pain women, abdominal pain men, vaginal bleeding, weakness, fever, dyspnea, syncope, headache, dizziness, GI bleed, back pain, seizure, CVA, palpatations, mental health, musculoskeletal)? @ -Right shoulder dislocation. Right shoulder fracture. Right shoulder sprain. This list is not all inclusive. EKG interpreted by me (3pts min.). @ -None done X-rays interpreted by me (1pt min.). @ -X-ray shows a dislocation of the right shoulder. Postreduction films show satisfactory reduction of the right shoulder. CT interpreted by me (1pt min.). @ -None done U/S interpreted by me (1pt. min.). @ -None done What testing was considered but not performed or refused? (CT, X-rays, U/S, labs)? Why? @ -None What meds were considered but not given or refused? Why? @ -None Did you discuss the management of the patient with other professionals (professionals i.e. , PA, PATIENT ACCOUNT SPECIALIST, lab, RT, psych nurse, licensed social worker, sports lawyer, teacher, correction officer penitentiary, case finishing machine adjuster)? Give summary @ -No Was smoking cessation discussed for >3mins.? @ -No Was critical care preformed (if so, how long)? @ -No Were there social determinants of health that impacted care today? How? (Homelessness, low income, unemployed, alcoholism, drug addiction, transportation, low edu. Level, literacy, decrease access to med. care, intermediate, rehab)? @ -No Was there de-escalation of care discussed even if they declined (Discuss DNR or withdrawal of care, Hospice)? DNR status @ -No What co-morbidities impacted this encounter? (DM, HTN, Smoking, COPD, CAD, Cancer, CVA, ARF, Chemo, Hep., AIDS, mental health diagnosis, sleep apnea, morbid obesity)? @ -None Was patient admitted / discharged? Hospital course, mention meds given and route, prescriptions, significant lab abnormalities, going to OR and other pertinent info. @ -Patient presents with recurrent right shoulder dislocations. Vital signs within acceptable limits. This was in a traumatic event. Right shoulder is dislocated on x-ray. Initially attempted reduction with just IV Dilaudid as this has occurred without issue in the past however patient did not tolerate. Therefore his procedural sedation was completed. He tolerated the procedure well and we had appropriate reduction of the right shoulder. Placed in a shoulder immobilizer. I discussed with the patient and he will be discharged home with instructions to follow-up with orthopedic surgery as I am concerned for his recurrent right shoulder dislocations and he has not formally had a outpatient workup for it. He was in agreement this plan. I instructed the patient to follow up with their PCP in the next 1-3 days. I provided contact information for follow up with orthopedics. I explained that the patient should return to the emergency department if they experience any worsening symptoms. Strict return precautions were discussed with the patient. The patient expressed understanding of these instructions. I answered all quest ions that the patient had. The patient was discharged home in good condition with their prescriptions and follow up information. Undiagnosed new problem with uncertain prognosis? @ -No Drug Therapy requiring intensive monitoring for toxicity (Heparin, Nitro, Insulin, Cardizem)? @ -No Were any procedures done? @ -Procedural sedation, reduction of right shoulder Diagnosis/symptom? @ -Recurrent right shoulder dislocation with reduction Acute, or Chronic, or Acute on Chronic? @ -Acute Uncomplicated (without systemic symptoms) or Complicated (systemic symptoms)? @ -Uncomplicated Side effects of treatment? @ -No Exacerbation, Progression, or Severe Exacerbation? @ -No Poses a threat to life or bodily function? How? (Chest pain, [place], [place], pneumonia, PE, COPD, DKA, ARF, appy, cholecystitis, CVA, Diverticulitis, Homicidal, Suicidal, threat to staff... and all critical care pts) @ -Unlikely at this time Disposition Clinical Impression: Recurrent dislocation, right shoulder Disposition: HOME SELF-CARE Condition: Good Instructions (If sedation given, give patient instructions): Shoulder Dislocation (ED), Moderate Sedation (ED) Additional Instructions: Follow-up with orthopedic surgery as you have recurrent right shoulder disloc ations. Maintain shoulder in the shoulder immobilizer for at least 1 day. Return if any worsening symptoms. Follow-up with PCP in the next 1 to 3 days. Is patient prescribed a controlled substance at d/c from ED?: No Referrals: Ranulfo Puente MD [Primary Care Provider] - 1-2 days Kalia Botello DO [Doctor of Osteopathic Medicine] - 1-2 days Time of Disposition: 09:46
[2024-08-09 10:17] VITALS: BP 116/78; PULSE 96
== END 2024-08-09 10:26 | disposition home or self-care (01) ==
LOC: EC 07:28
DX: M24.411 Recurrent dislocation, right shoulder (principal); F17.200 Nicotine dependence, unspecified, uncomplicated; Z88.8 Allergy status to other drugs, medicaments and biological substances
CPT/HCPCS: 73020; 99284; 23650; 96374; 96375; 96361 ×2; J1171; J2704